=== PATIENT | female | born 1965 | race Caucasian/White ===

== ENCOUNTER 2020-08-29 02:22 | Emergency (ER) | payer OTHER, SELFPAY ==
[2020-08-29 02:31] VITALS: BP 140/85; PULSE 92; RESP 18; O2SAT 100; BMI 25.2
[2020-08-29 04:00] VITALS: BP 140/85; PULSE 92; RESP 18; TEMP 36.9; O2SAT 100
--- NOTE | 2020-08-29 04:21 | ECG_ITS ---
Test Reason : HEADACHE Blood Pressure : / mmHG Vent. Rate : 066 BPM Atrial Rate : 066 BPM P-R Int : 134 ms QRS Dur : 086 ms QT Int : 420 ms P-R-T Axes : 038 055 057 degrees QTc Int : 440 ms Normal sinus rhythm Normal ECG No previous ECGs available Referred By: Kayleen Nielsen Electronically Signed By:Lane Lopez
--- NOTE | 2020-08-29 04:24 | ED.HA ---
HPI - Headache General Chief Complaint: Headache Stated Complaint: migraine Time Seen by Provider: 08/29/20 02:51 Source: patient Mode of arrival: ambulatory History of Present Illness HPI Narrative: 55F p/w migraine since Wednesday that has been normal onset and character for her (nausea, photosensitivity, auditory sensitivity) without additional symptoms until Wednesday when her headache worsened. None of this has been associated with fevers, chills, SOB, palpitations and the nausea is a side effect of her migraine. She denies any urinary symptoms but endorses COVID vaccine #1 approximately 1 week ago. Otherwise, patient denies speech/or functional deficits. She took her prescribed rizatriptan x2 on Wednesday and then took Zomig in the evening. She stopped drinking her Diet Coke on Wednesday. Wednesday she still had her migraine so she took another Zomig and then began experiencing worsening headache so she took sumatriptan x2 and states that her head hurts so bad and she doesn't know what to do . Related Data Home Medications Medication Instructions Recorded Confirmed estradiol 0.0375 mg/24 hr 1 patch TOPICAL 2XW 07/11/20 07/11/20 semiweekly transdermal patch Previous Rx's Medication Instructions Recorded simvastatin 20 mg tablet 20 mg PO DAILY #90 tab 06/06/20 bupropion HCl 150 mg 24 hr tablet, 300 mg PO QAM #180 tab 07/03/20 extended release rizatriptan 10 mg tablet 10 mg PO .COMPLEX 30 Days #12 tab 07/11/20 cefixime 400 mg PO DAILY 7 Days #7 cap 08/29/20 Allergies Allergy/AdvReac Type Severity Reaction Status Date / Time levofloxacin AdvReac Unknown serious Verified 07/11/20 17:45 abdominal upset Review of Systems Review of Systems: Pertinent positives and negatives as stated in HPI and 10 point review of systems is otherwise negative. [facility] Past Medical History Source: nursing notes reviewed Medical History Depression Family history of early CAD Hx of migraine headaches Hx of renal tubular acidosis Hyperlipidemia Insomnia Kidney stones Vitamin D deficiency Surgical History H/O colonoscopy History of section Hx of prior ablation treatment S/P hysterectomy Family History Family History Father CVD (cardiovascular disease) Mother No problems noted. Brother No problems noted. Daughter No problems noted. Daughter No problems noted. Social History Social History Patient Tobacco Use Status: Never used Tobacco Use of substances other than those prescribed or required for medical reasons: No Advance Directives: No Patient : No Physical Exam Vital Signs: Vital Signs: Last Vital Signs Temp 98.4 F 08/29/20 04:00 Pulse 68 08/29/20 06:00 Resp 18 08/29/20 06:00 BP 147/85 H 08/29/20 06:00 Pulse Ox 100 08/29/20 04:00 Body Mass Index 25.2 VITAL SIGNS: Reviewed. GENERAL: Well developed, well nourished, mild distress. HEAD: Normocephalic/atraumatic EYES: PERRLA, EOMIy NOSE: Nares patent bilateral OROPHARYNX: no oral lesions noted, posterior pharynx clear NECK: Supple, no adenopathy LUNGS: Normal breath sounds. No adventitious sounds or accessory muscle use. SpO2<100> CARDIOVASCULAR: Regular rate and rhythm without noted murmurs ABDOMEN: Soft, non-tender, non-distended with bowel sounds. SKIN: Inspection of the skin reveals no rashes NEUROLOGIC: Alert and oriented x 4. Strength and sensation to light touch were grossly intact x 4. Course Course Course Narrative: 55-year-old female with history and clinical presentation consistent with likely combination of migraine and caffeine withdrawal, but concerns regarding the use of 3 different triptans for migraine control. Suspect patient may now have a medication overuse headache. Will attempt to control the migraine with a combination of medications an IV fluids, check labs/urinalysis/EKG. Review of all investigations significant for evidence pyelonephritis which was treated with initial antibiotics here in the emergency room and then patient provided a prescription for remainder treatment. On re-evaluation, patient has had excellent improvement of her symptoms and she was strongly encouraged to follow-up with her neurologist. MDM - Headache Lab Data Result diagrams: 08/29/20 04:47 08/29/20 04:47 Labs: Lab Results 08/29/20 08/29/20 Range/Units 04:47 04:47 WBC 7.0 (4.8-10.8) X10*3/uL RBC 4.98 (4.20-5.50) X10*6/uL Hgb 15.5 (12.0-16.0) g/dl Hct 45.8 (37-47) % MCV 92.0 (80-98) fL MCH 31.1 (27.0-33.0) pg MCHC 33.8 (31.0-35.0) g/dl RDW 12.3 (11.0-16.0) % Plt Count 219 (160-400) X10*3/uL MPV 8.8 L (9.4-12.3) fL Immature Gran % (Auto) 0.3 (0.0-0.4) % Neut % (Auto) 74.0 H (45-73) % Lymph % (Auto) 17.6 L (20-40) % [place]cdowell % (Auto) 6.6 (2-11) % Eos % (Auto) 1.1 (0-4) % Baso % (Auto) 0.4 (0-2) % Lymph # (Auto) 1.2 (1.2-4.9) X10*3/uL [place] # (Auto) 0.5 (0.1-1.2) X10*3/uL Eos # (Auto) 0.1 (0.0-0.4) X10*3/uL Baso # (Auto) 0.0 (0.0-0.2) X10*3/uL Abs Immat Gran (auto) 0.02 (0.00-0.03) X10*3/uL Absolute Neuts (auto) 5.2 (2.0-8.3) X10*3/uL Absolute Nucleated RBC 0.000 (0.0-0.012) X10*3/uL Nucleated RBC % (auto) 0.0 (0.0-0.2) /100WBC Urine Color YELLOW Urine Appearance HAZY Urine pH 7.0 (5.0-8.0) Ur Specific [place] 1.010 (1.005-1.025) Urine Protein NEG (NEG-TRACE) MG/DL Urine Glucose (UA) NEG (NEG) MG/DL Urine Ketones NEG (NEG) MG/DL Urine Blood 2+ H (NEG) Urine Nitrite POS H (NEG) Ur Leukocyte Esterase 3+ H (NEG) Urine RBC 5-9 H (0) /HPF Urine WBC 30-49 H (0-4) /HPF Ur Squamous Epith Cells 1+ /LPF Urine Bacteria 4+ /LPF ECG Data Attestation: I personally reviewed and interpreted this ECG as follows: Prior ECG tracings: not available for review Interpretation: Normal sinus rhythm, HR-66, no evidence of acute ischemia, MS/QRS/QTC are within normal limits. Discharge Plan Discharge Clinical Impression: Migraines, Pyelonephritis Patient Disposition: Home, Self-Care Instructions: Migraine Headache (ED), Kidney Infection (ED) Additional Instructions: Resume your home medications as prescribed. Please call the office of your neurologist this morning and try to move up your appointment to an earlier date and time. Return the ER for any acute worsening of your symptoms. Prescriptions: New cefixime 400 mg capsule 400 mg PO DAILY 7 Days Qty: 7 RF: 0 No Action simvastatin 20 mg tablet 20 mg PO DAILY Qty: 90 RF: 1 bupropion HCl 150 mg tablet extended release 24 hr 300 mg PO QAM Qty: 180 RF: 0 estradiol 0.0375 mg/24 hr patch semiweekly 1 patch topical 2XW RF: 0 rizatriptan 10 mg tablet 10 mg PO .COMPLEX 30 Days Qty: 12 RF: 1 Referrals: Tk Murillo, [employer] [Primary Care Provider] - 2 days Interventions: ED Discharge Assessment Last Done: 08/29/20 06:39
[2020-08-29 04:53] LABS: Basophils Percent Auto 0.4 % (0-2); Eosinophils Absolute Auto 0.1 X10*3/uL (0.0-0.4); Eosinophils Percent Auto 1.1 % (0-4); Glucose Urine UA NEG (NEG); Hematocrit 45.8 % (37-47); Hemoglobin 15.5 g/dl (12.0-16.0); Imm Gran Abs Auto 0.02 X10*3/uL (0.00-0.03); Imm Gran Pct Auto 0.3 % (0.0-0.4); Leukocyte Esterase Urine 3+ (NEG); Lymphocytes Absolute Auto 1.2 X10*3/uL (1.2-4.9); Lymphocytes Percent Auto 17.6 % (20-40); MANUAL DIFF FLAG NO; Mean Corpuscular HGB Conc 33.8 g/dl (31.0-35.0); Mean Corpuscular Hemoglobin 31.1 pg (27.0-33.0); Mean Platelet Volume 8.8 fL (9.4-12.3); Monocytes Absolute Auto 0.5 X10*3/uL (0.1-1.2); Monocytes Percent Auto 6.6 % (2-11); Neutrophils Absolute Auto 5.2 X10*3/uL (2.0-8.3); Nitrite Urine POS (NEG); Platelet Count 219 X10*3/uL (160-400); Red Blood Count 4.98 X10*6/uL (4.20-5.50); Red Cell Distribution Width 12.3 % (11.0-16.0); UACC Culture Trigger YES; Urine Blood 2+ (NEG); Urine Ketones NEG (NEG); Urine Protein NEG (NEG-TRACE)
[2020-08-29 04:54] LABS: Appearance Urine HAZY; Color Urine YELLOW
[2020-08-29 04:59] LABS: Bacteria Urine 4+ /LPF; Squamous Epithelial Cell Urine 1+ /LPF; WBC Urine 30-49 /HPF (0-4)
[2020-08-29] MEDS: diphenhydrAMINE HCL 50 MG/ML VIAL 25 MG IVPUSH (05:05)
[2020-08-29] MEDS: Metoclopramide HCl 10 MG/2 ML VIAL IVPUSH (05:05)
[2020-08-29] MEDS: Acetaminophen 325 MG TABLET 975 MG PO (05:06)
[2020-08-29] MEDS: 0.9 % Sodium Chloride 1,000 ML 999 ML IV (05:06)
[2020-08-29] MEDS: Ketorolac Tromethamine 15 MG/ML VIAL IVPUSH (05:06)
[2020-08-29] MEDS: cefTRIAXone sodium 1 GM in 0.9 % Sodium Chloride 50 ML IV (05:58)
[2020-08-29 06:00] VITALS: BP 147/85; PULSE 68; RESP 18
== END 2020-08-29 06:55 | disposition home or self-care (01) ==
PROVIDERS: Emergency Provider Student in an Organized Health Care Education/Training Program; PCP Nurse Practitioner Family
DX: G43.909 Migraine, unspecified, not intractable, without status migrainosus (principal); N11.1 Chronic obstructive pyelonephritis; Z79.899 Other long term (current) drug therapy
CPT/HCPCS: 36415; 80053; 81001; 81003; 83735; 85025; 87086; 87088; 87186; 93005; 96361; 96365; 96375; 99285; J0696; J1200; J1885; J2765

== ENCOUNTER 2020-09-10 13:21 | Outpatient (REF) | payer OTHER, SELFPAY ==
[2020-09-10 16:50] LABS: Glucose Urine UA NEG (NEG); Leukocyte Esterase Urine 3+ (NEG); Nitrite Urine NEG (NEG); Specific Gravity - Urine <= 1.005 (1.005-1.025); UACC Culture Trigger YES; Urine Blood 1+ (NEG); Urine Ketones NEG (NEG); Urine Protein NEG (NEG-TRACE)
[2020-09-10 16:52] LABS: Appearance Urine HAZY; Color Urine STRAW
[2020-09-10 18:21] LABS: Bacteria Urine TRACE /LPF; RBC Urine 0-2 /HPF (0); Squamous Epithelial Cell Urine TRACE /LPF
== END 2020-09-10 13:22 | disposition home or self-care (01) ==
LOC: HO.HMGCLDS 13:21
PROVIDERS: PCP Nurse Practitioner Family; Visit Provider Nurse Practitioner Family
DX: N39.0 Urinary tract infection, site not specified (principal)
CPT/HCPCS: 81001; 81003; 87086

== ENCOUNTER 2020-09-18 11:49 | Outpatient (REF) | payer OTHER, SELFPAY ==
[2020-09-18 13:53] LABS: Glucose Urine UA NEG (NEG); Leukocyte Esterase Urine 3+ (NEG); Nitrite Urine NEG (NEG); PH 7.5 (5.0-8.0); Urine Blood TRACE (NEG); Urine Ketones NEG (NEG); Urine Protein NEG (NEG-TRACE)
[2020-09-18 13:54] LABS: Appearance Urine CLEAR; Color Urine YELLOW
[2020-09-18 14:04] LABS: Amorphous Sediment Urine 2+ /LPF; Bacteria Urine TRACE /LPF; Granular Casts Urine 0-2 /LPF; RBC Urine 0 /HPF (0); Squamous Epithelial Cell Urine 1+ /LPF
== END 2020-09-18 11:50 | disposition home or self-care (01) ==
LOC: HO.HMGCLDS 11:49
PROVIDERS: PCP Nurse Practitioner Family; Visit Provider Nurse Practitioner Family
DX: R30.0 Dysuria (principal)
CPT/HCPCS: 81001; 87086

== ENCOUNTER 2021-03-26 07:45 | Outpatient (REF) | payer OTHER, SELFPAY ==
[2021-03-26 11:22] LABS: Appearance Urine HAZY; Color Urine YELLOW; Glucose Urine UA NEG (NEG); Leukocyte Esterase Urine 3+ (NEG); Nitrite Urine NEG (NEG); Specific Gravity - Urine 1.015 (1.005-1.025); Urine Blood TRACE (NEG); Urine Ketones NEG (NEG); Urine Protein NEG (NEG-TRACE)
[2021-03-26 11:53] LABS: Amorphous Sediment Urine 2+ /LPF; Bacteria Urine 2+ /LPF; Squamous Epithelial Cell Urine 3+ /LPF
[2021-03-26 11:54] LABS: RBC Urine 0-2 /HPF (0)
[2021-03-26 12:02] LABS: Alanine Aminotransferase 32 U/L (0-31); Albumin Level 4.3 g/dL (3.5-5.0); Alkaline Phosphatase 86 U/L (39-117); Anion Gap 14 (12-20); Aspartate Amino Transferase 32 U/L (5-31); Bilirubin Total 0.6 mg/dL (0.0-1.0); Blood Urea Nitrogen 9 mg/dL (9-16); Calcium 9.2 mg/dL (8.4-10.2); Carbon Dioxide 25 mmol/L (22-29); Chloride 108 mmol/L (96-108); Cholesterol 180 mg/dL; Estimated Glomerular Filt Rate > 60; Glucose Fasting 80 mg/dL (60-99); HDL Cholesterol 67 mg/dL; LDL Cholesterol Calculated 99 mg/dl; Potassium 4.3 mmol/L (3.3-5.1); Sodium 143 mmol/L (135-145); Total Protein 6.6 g/dL (6.5-8.0); Triglycerides 73 mg/dL
== END 2021-03-26 07:46 | disposition home or self-care (01) ==
LOC: HO.HMGCLDS 07:45
PROVIDERS: PCP Nurse Practitioner Family; Visit Provider Nurse Practitioner Family
DX: E78.5 Hyperlipidemia, unspecified (principal); R74.8 Abnormal levels of other serum enzymes; R30.0 Dysuria
CPT/HCPCS: 36415; 80053; 80061; 81001; 84443

== ENCOUNTER 2021-08-07 14:44 | Outpatient (REF) | payer OTHER, SELFPAY ==
[2021-08-07 16:32] LABS: MANUAL DIFF FLAG NO
[2021-08-07 16:34] LABS: Basophils Absolute Auto 0.1 X10*3/uL (0.0-0.2); Basophils Percent Auto 0.8 % (0-2); Eosinophils Absolute Auto 0.1 X10*3/uL (0.0-0.4); Eosinophils Percent Auto 0.9 % (0-4); Hemoglobin 13.6 g/dl (12.0-16.0); Imm Gran Abs Auto 0.02 X10*3/uL (0.00-0.03); Imm Gran Pct Auto 0.3 % (0.0-0.4); Lymphocytes Absolute Auto 1.2 X10*3/uL (1.2-4.9); Lymphocytes Percent Auto 18.2 % (20-40); Mean Corpuscular HGB Conc 33.2 g/dl (31.0-35.0); Mean Corpuscular Volume 90.5 fL (80.0-98.0); Mean Platelet Volume 9.9 fL (9.4-12.3); Monocytes Absolute Auto 0.5 X10*3/uL (0.1-1.2); Monocytes Percent Auto 8.1 % (2-11); Neutrophils Absolute Auto 4.7 x10*3/uL (2.0-8.3); Neutrophils Percent Auto 71.7 % (45-73); Platelet Count 287 X10*3/uL (160-400); Red Blood Count 4.53 X10*6/uL (4.20-5.50); White Blood Count 6.6 X10*3/uL (4.8-10.8)
[2021-08-07 16:45] LABS: Anion Gap 13 (12-20); Blood Urea Nitrogen 11 mg/dL (9-16); Calcium 9.5 mg/dL (8.4-10.2); Carbon Dioxide 26 mmol/L (22-29); Chloride 106 mmol/L (96-108); Estimated Glomerular Filt Rate 52; Glucose Random 80 mg/dL (60-115); Potassium 4.6 mmol/L (3.3-5.1); Sodium 140 mmol/L (135-145)
[2021-08-07 16:46] LABS: Alanine Aminotransferase 30 U/L (0-31); Albumin Level 4.1 g/dL (3.5-5.0); Alkaline Phosphatase 90 U/L (39-117); Aspartate Amino Transferase 28 U/L (5-31); Bilirubin Direct 0.2 mg/dL (0.0-0.5); Bilirubin Total 0.4 mg/dL (0.0-1.0); Total Protein 6.5 g/dL (6.5-8.0)
[2021-08-07 17:07] LABS: Appearance Urine HAZY; Color Urine STRAW; Glucose Urine UA NEG (NEG); Leukocyte Esterase Urine 3+ (NEG); Nitrite Urine NEG (NEG); PH 6.5 (5.0-8.0); Specific Gravity - Urine <= 1.005 (1.005-1.025); Urine Blood 1+ (NEG); Urine Ketones NEG (NEG); Urine Protein NEG (NEG-TRACE)
[2021-08-07 17:13] LABS: Bacteria Urine 4+ /LPF; Mucus Urine 4+ /LPF; Squamous Epithelial Cell Urine 4+ /LPF; WBC Urine 50-75 /HPF (0-4)
== END 2021-08-07 14:45 | disposition home or self-care (01) ==
LOC: HO.HMGCLDS 14:44
PROVIDERS: PCP Nurse Practitioner Family; Visit Provider Podiatrist
DX: R74.8 Abnormal levels of other serum enzymes (principal); R30.0 Dysuria
CPT/HCPCS: 36415; 80048; 80076; 81001; 85025

== ENCOUNTER 2021-08-08 15:07 | Outpatient (REF) | payer OTHER, SELFPAY ==
[2021-08-08 16:44] LABS: Appearance Urine CLEAR; Color Urine STRAW; Glucose Urine UA NEG (NEG); Leukocyte Esterase Urine 3+ (NEG); Nitrite Urine NEG (NEG); PH 6.5 (5.0-8.0); Specific Gravity - Urine <= 1.005 (1.005-1.025); UACC Culture Trigger YES; Urine Blood 1+ (NEG); Urine Ketones NEG (NEG); Urine Protein NEG (NEG-TRACE)
[2021-08-08 17:06] LABS: Bacteria Urine 2+ /LPF; RBC Urine 0-2 /HPF (0); Squamous Epithelial Cell Urine 2+ /LPF
== END 2021-08-08 15:08 | disposition home or self-care (01) ==
LOC: HO.HMGCLDS 15:07
PROVIDERS: PCP Nurse Practitioner Family; Visit Provider Nurse Practitioner Family
DX: N39.0 Urinary tract infection, site not specified (principal)
CPT/HCPCS: 81001; 87086

== ENCOUNTER 2021-08-26 15:07 | Outpatient (REF) | payer OTHER, SELFPAY ==
[2021-08-26 16:43] LABS: Appearance Urine CLEAR; Color Urine STRAW; Glucose Urine UA NEG (NEG); Leukocyte Esterase Urine 3+ (NEG); Nitrite Urine NEG (NEG); PH 6.5 (5.0-8.0); Specific Gravity - Urine <= 1.005 (1.005-1.025); UACC Culture Trigger YES; Urine Blood TRACE (NEG); Urine Ketones NEG (NEG); Urine Protein NEG (NEG-TRACE)
[2021-08-26 16:51] LABS: Bacteria Urine 1+ /LPF; Squamous Epithelial Cell Urine 3+ /LPF; WBC Urine 50-75 /HPF (0-4)
== END 2021-08-26 15:08 | disposition home or self-care (01) ==
LOC: HO.HMGCLDS 15:07
PROVIDERS: PCP Nurse Practitioner Family; Visit Provider Nurse Practitioner Family
DX: N39.0 Urinary tract infection, site not specified (principal)
CPT/HCPCS: 81001; 87086

== ENCOUNTER 2021-10-14 08:02 | Outpatient (REF) | payer OTHER, SELFPAY ==
[2021-10-14 11:20] LABS: MANUAL DIFF FLAG NO
[2021-10-14 11:32] LABS: Appearance Urine HAZY; Basophils Absolute Auto 0.1 X10*3/uL (0.0-0.2); Color Urine YELLOW; Eosinophils Absolute Auto 0.1 X10*3/uL (0.0-0.4); Eosinophils Percent Auto 2.9 % (0-4); Glucose Urine UA NEG (NEG); Hematocrit 40.3 % (37.0-47.0); Hemoglobin 13.4 g/dl (12.0-16.0); Imm Gran Abs Auto 0.01 X10*3/uL (0.00-0.03); Imm Gran Pct Auto 0.2 % (0.0-0.4); Leukocyte Esterase Urine 3+ (NEG); Lymphocytes Absolute Auto 1.1 X10*3/uL (1.2-4.9); Lymphocytes Percent Auto 22.9 % (20-40); Mean Corpuscular HGB Conc 33.3 g/dl (31.0-35.0); Mean Corpuscular Hemoglobin 30.2 pg (27.0-33.0); Mean Platelet Volume 9.9 fL (9.4-12.3); Monocytes Absolute Auto 0.4 X10*3/uL (0.1-1.2); Neutrophils Absolute Auto 3.1 x10*3/uL (2.0-8.3); Nitrite Urine NEG (NEG); Platelet Count 222 X10*3/uL (160-400); Red Blood Count 4.43 X10*6/uL (4.20-5.50); Red Cell Distribution Width 12.1 % (11.0-16.0); UACC Culture Trigger YES; Urine Blood 3+ (NEG); Urine Ketones NEG (NEG); Urine Protein NEG (NEG-TRACE); White Blood Count 4.8 X10*3/uL (4.8-10.8)
[2021-10-14 11:48] LABS: Alanine Aminotransferase 18 U/L (0-31); Albumin Level 4.3 g/dL (3.5-5.0); Alkaline Phosphatase 86 U/L (39-117); Anion Gap 10 (12-20); Aspartate Amino Transferase 20 U/L (5-31); Bilirubin Total 0.5 mg/dL (0.0-1.0); Blood Urea Nitrogen 12 mg/dL (9-16); Calcium 9.1 mg/dL (8.4-10.2); Carbon Dioxide 27 mmol/L (22-29); Chloride 106 mmol/L (96-108); Cholesterol 187 mg/dL; Estimated Glomerular Filt Rate 52; Glucose Fasting 84 mg/dL (60-99); HDL Cholesterol 76 mg/dL; LDL Cholesterol Calculated 100 mg/dl; Potassium 4.3 mmol/L (3.3-5.1); Sodium 139 mmol/L (135-145); Total Protein 6.4 g/dL (6.5-8.0); Triglycerides 55 mg/dL
[2021-10-14 11:50] LABS: Amorphous Sediment Urine 2+ /LPF; Bacteria Urine 1+ /LPF; Squamous Epithelial Cell Urine 2+ /LPF
[2021-10-14 11:59] LABS: TSH reflex Free T4 1.39 uIU/mL (0.32-4.0); Vitamin D 25-OH Total 20.3 ng/mL (>30)
== END 2021-10-14 08:03 | disposition home or self-care (01) ==
LOC: HO.HMGCLDS 08:02
PROVIDERS: PCP Nurse Practitioner Family; Visit Provider Nurse Practitioner Family
DX: Z00.00 Encounter for general adult medical examination without abnormal findings (principal); Z78.0 Asymptomatic menopausal state
CPT/HCPCS: 36415; 80053; 80061; 81001; 82306; 84443; 85025; 87086

== ENCOUNTER 2022-02-05 06:09 | Outpatient (REF) | payer OTHER, SELFPAY ==
[2022-02-05 07:43] LABS: MANUAL DIFF FLAG NO
[2022-02-05 07:48] LABS: Basophils Absolute Auto 0.1 X10*3/uL (0.0-0.2); Basophils Percent Auto 1.6 % (0-2); Eosinophils Absolute Auto 0.2 X10*3/uL (0.0-0.4); Eosinophils Percent Auto 3.4 % (0-4); Hematocrit 40.6 % (37.0-47.0); Hemoglobin 13.6 g/dl (12.0-16.0); Imm Gran Abs Auto 0.02 X10*3/uL (0.00-0.03); Imm Gran Pct Auto 0.4 % (0.0-0.4); Lymphocytes Absolute Auto 1.1 X10*3/uL (1.2-4.9); Lymphocytes Percent Auto 24.9 % (20-40); Mean Corpuscular HGB Conc 33.5 g/dl (31.0-35.0); Mean Corpuscular Hemoglobin 30.4 pg (27.0-33.0); Mean Corpuscular Volume 90.8 fL (80.0-98.0); Mean Platelet Volume 9.7 fL (9.4-12.3); Monocytes Absolute Auto 0.5 X10*3/uL (0.1-1.2); Monocytes Percent Auto 10.5 % (2-11); Neutrophils Absolute Auto 2.6 x10*3/uL (2.0-8.3); Neutrophils Percent Auto 59.2 % (45-73); Platelet Count 249 X10*3/uL (160-400); Red Blood Count 4.47 X10*6/uL (4.20-5.50); Red Cell Distribution Width 11.9 % (11.0-16.0); White Blood Count 4.5 X10*3/uL (4.8-10.8)
[2022-02-05 08:04] LABS: Alanine Aminotransferase 20 U/L (0-31); Albumin Level 4.2 g/dL (3.5-5.0); Alkaline Phosphatase 98 U/L (39-117); Anion Gap 14 (12-20); Aspartate Amino Transferase 20 U/L (5-31); Bilirubin Total 0.5 mg/dL (0.0-1.0); Blood Urea Nitrogen 12 mg/dL (9-16); Calcium 9.2 mg/dL (8.4-10.2); Carbon Dioxide 26 mmol/L (22-29); Chloride 106 mmol/L (96-108); Estimated Glomerular Filt Rate 53; Glucose Random 85 mg/dL (60-115); Potassium 4.2 mmol/L (3.3-5.1); Sodium 142 mmol/L (135-145); Total Protein 6.5 g/dL (6.5-8.0)
[2022-02-05 08:23] LABS: TSH reflex Free T4 2.29 uIU/mL (0.32-4.0)
[2022-02-05 08:38] LABS: INTERNATIONAL NORM RATIO 0.9 (0.9-1.1)
[2022-02-05 08:41] LABS: Partial Thromboplastin Time 34.2 SEC (26.0-36.4)
[2022-02-05 11:17] LABS: Appearance Urine Cloudy; Color Urine Yellow; Glucose Urine UA Negative (Negative); Leukocyte Esterase Urine Large (3+) (Negative); Nitrite Urine Negative (Negative); PH 7.5 (5.0-9.0); UMIC TRIGGER UACC YES; Urine Blood Trace (Negative); Urine Ketones Negative (Negative); Urine Protein Negative (Neg-Trace)
[2022-02-05 12:04] LABS: Bacteria Urine 1+ (None Seen); Hyaline Casts Urine 0-2 /LPF (0-2); RBC Urine 0-2 /HPF (0-2); UACC Culture Trigger YES; WBC Urine 21-50 /HPF (0-5)
== END 2022-02-05 06:10 | disposition home or self-care (01) ==
LOC: HO.HMGCLDS 06:09
PROVIDERS: PCP Nurse Practitioner Family; Visit Provider Nurse Practitioner Family
DX: Z01.818 Encounter for other preprocedural examination (principal)
CPT/HCPCS: 36415; 80053; 81001; 81003; 84443; 85025; 85610; 85730; 87086; 87088; 87186

== ENCOUNTER 2022-02-17 06:47 | Outpatient (REF) | payer OTHER, SELFPAY ==
[2022-02-17 11:31] LABS: Appearance Urine Cloudy; Color Urine Yellow; Glucose Urine UA Negative (Negative); Leukocyte Esterase Urine Large (3+) (Negative); Nitrite Urine Negative (Negative); PH 6.5 (5.0-9.0); Specific Gravity - Urine 1.015 (1.005-1.025); UMIC TRIGGER UACC YES; Urine Blood Trace (Negative); Urine Ketones Negative (Negative); Urine Protein Negative (Neg-Trace)
[2022-02-17 11:39] LABS: Bacteria Urine 1+ (None Seen); Hyaline Casts Urine 0-2 /LPF (0-2); RBC Urine 0-2 /HPF (0-2); UACC Culture Trigger YES; WBC Urine >50 /HPF (0-5)
== END 2022-02-17 06:48 | disposition home or self-care (01) ==
LOC: HO.HMGCLDS 06:47
PROVIDERS: PCP Nurse Practitioner Family; Visit Provider Nurse Practitioner Family
DX: N39.0 Urinary tract infection, site not specified (principal)
CPT/HCPCS: 81001; 87086

== ENCOUNTER 2022-03-16 09:56 | Outpatient (REF) | payer OTHER, SELFPAY ==
[2022-03-16 11:30] LABS: MANUAL DIFF FLAG NO
[2022-03-16 11:35] LABS: Basophils Absolute Auto 0.1 X10*3/uL (0.0-0.2); Basophils Percent Auto 1.1 % (0-2); Eosinophils Absolute Auto 0.1 X10*3/uL (0.0-0.4); Eosinophils Percent Auto 2.6 % (0-4); Hemoglobin 14.2 g/dl (12.0-16.0); Imm Gran Abs Auto 0.01 X10*3/uL (0.00-0.03); Imm Gran Pct Auto 0.2 % (0.0-0.4); Lymphocytes Absolute Auto 1.1 X10*3/uL (1.2-4.9); Lymphocytes Percent Auto 20.2 % (20-40); Mean Corpuscular Hemoglobin 30.6 pg (27.0-33.0); Mean Corpuscular Volume 92.7 fL (80.0-98.0); Mean Platelet Volume 9.6 fL (9.4-12.3); Monocytes Absolute Auto 0.5 X10*3/uL (0.1-1.2); Monocytes Percent Auto 8.5 % (2-11); Neutrophils Absolute Auto 3.6 x10*3/uL (2.0-8.3); Neutrophils Percent Auto 67.4 % (45-73); Platelet Count 278 X10*3/uL (160-400); Red Blood Count 4.64 X10*6/uL (4.20-5.50); White Blood Count 5.4 X10*3/uL (4.8-10.8)
[2022-03-16 11:54] LABS: Appearance Urine Clear; Color Urine Yellow; Glucose Urine UA Negative (Negative); Leukocyte Esterase Urine Large (3+) (Negative); Nitrite Urine Negative (Negative); PH 6.5 (5.0-9.0); UMIC TRIGGER UACC YES; Urine Blood Negative (Negative); Urine Ketones Negative (Negative); Urine Protein Negative (Neg-Trace)
[2022-03-16 11:56] LABS: Bacteria Urine None Seen (None Seen); Hyaline Casts Urine 0-2 /LPF (0-2); RBC Urine 0-2 /HPF (0-2); UACC Culture Trigger YES; WBC Urine 21-50 /HPF (0-5)
[2022-03-16 12:12] LABS: Alanine Aminotransferase 24 U/L (0-31); Albumin Level 4.3 g/dL (3.5-5.0); Alkaline Phosphatase 102 U/L (39-117); Anion Gap 12 (12-20); Aspartate Amino Transferase 24 U/L (5-31); Bilirubin Total 0.5 mg/dL (0.0-1.0); Blood Urea Nitrogen 12 mg/dL (9-16); Calcium 9.6 mg/dL (8.4-10.2); Carbon Dioxide 27 mmol/L (22-29); Chloride 106 mmol/L (96-108); Estimated Glomerular Filt Rate 55; Glucose Random 61 mg/dL (60-115); Potassium 4.3 mmol/L (3.3-5.1); Sodium 141 mmol/L (135-145); Total Protein 6.5 g/dL (6.5-8.0)
== END 2022-03-16 09:57 | disposition home or self-care (01) ==
LOC: HO.HMGCLDS 09:56
PROVIDERS: PCP Nurse Practitioner Family; Visit Provider Nurse Practitioner Family
DX: N39.0 Urinary tract infection, site not specified (principal)
CPT/HCPCS: 36415; 80053; 81001; 85025; 87086

== ENCOUNTER 2022-10-01 13:32 | Outpatient (REF) | payer OTHER, SELFPAY | END 2022-10-01 13:33 | disposition home or self-care (01) | LOC: HO.HMGCLDS 13:32 | PROVIDERS: PCP Nurse Practitioner Family; Visit Provider Nurse Practitioner Family | DX: R82.90 Unspecified abnormal findings in urine (principal) | CPT/HCPCS: 81001; 87086 ==

== ENCOUNTER 2022-10-05 08:38 | Outpatient (REF) | payer OTHER, SELFPAY ==
[2022-10-05 11:38] LABS: MANUAL DIFF FLAG NO
[2022-10-05 11:49] LABS: Basophils Percent Auto 0.7 % (0-2); Eosinophils Absolute Auto 0.1 X10*3/uL (0.0-0.4); Eosinophils Percent Auto 1.7 % (0-4); Hematocrit 43.2 % (37.0-47.0); Hemoglobin 14.4 g/dl (12.0-16.0); Imm Gran Abs Auto 0.01 X10*3/uL (0.00-0.03); Imm Gran Pct Auto 0.2 % (0.0-0.4); Lymphocytes Absolute Auto 1.3 X10*3/uL (1.2-4.9); Lymphocytes Percent Auto 24.7 % (20-40); Mean Corpuscular HGB Conc 33.3 g/dl (31.0-35.0); Mean Corpuscular Hemoglobin 30.1 pg (27.0-33.0); Mean Corpuscular Volume 90.2 fL (80.0-98.0); Mean Platelet Volume 9.8 fL (9.4-12.3); Monocytes Absolute Auto 0.5 X10*3/uL (0.1-1.2); Monocytes Percent Auto 9.9 % (2-11); Neutrophils Absolute Auto 3.4 x10*3/uL (2.0-8.3); Neutrophils Percent Auto 62.8 % (45-73); Platelet Count 302 X10*3/uL (160-400); Red Blood Count 4.79 X10*6/uL (4.20-5.50); Red Cell Distribution Width 11.9 % (11.0-16.0); White Blood Count 5.3 X10*3/uL (4.8-10.8)
[2022-10-05 13:13] LABS: Alanine Aminotransferase 19 U/L (0-31); Albumin Level 4.6 g/dL (3.5-5.0); Alkaline Phosphatase 100 U/L (39-117); Anion Gap 16 (12-20); Aspartate Amino Transferase 22 U/L (5-31); Bilirubin Total 0.7 mg/dL (0.0-1.0); Blood Urea Nitrogen 9 mg/dL (9-16); Calcium 10.3 mg/dL (8.4-10.2); Carbon Dioxide 24 mmol/L (22-29); Chloride 103 mmol/L (96-108); Cholesterol 190 mg/dL; Estimated Glomerular Filt Rate 37; Glucose Fasting 86 mg/dL (60-99); HDL Cholesterol 75 mg/dL; LDL Cholesterol Calculated 101 mg/dl; Sodium 139 mmol/L (135-145); Total Protein 7.2 g/dL (6.5-8.0); Triglycerides 70 mg/dL
[2022-10-05 13:21] LABS: TSH reflex Free T4 1.42 uIU/mL (0.32-4.0)
== END 2022-10-05 08:39 | disposition home or self-care (01) ==
LOC: HO.HMGCLDS 08:38
PROVIDERS: PCP Nurse Practitioner Family; Visit Provider Nurse Practitioner Family
DX: E78.5 Hyperlipidemia, unspecified (principal); N39.0 Urinary tract infection, site not specified
CPT/HCPCS: 36415; 80053; 80061; 81001; 84443; 85025; 87086

== ENCOUNTER 2022-10-07 06:18 | Outpatient (REF) | payer OTHER, SELFPAY ==
[2022-10-07 11:18] LABS: Appearance Urine Clear; Color Urine Yellow; Glucose Urine UA Negative (Negative); Leukocyte Esterase Urine Moderate (2+) (Negative); Nitrite Urine Negative (Negative); Specific Gravity - Urine <= 1.005 (1.005-1.025); UMIC TRIGGER UA YES; Urine Blood Negative (Negative); Urine Ketones Negative (Negative); Urine Protein Negative (Neg-Trace)
[2022-10-07 11:35] LABS: Bacteria Urine None Seen (None Seen); Hyaline Casts Urine 0-2 /LPF (0-2); RBC Urine 0-2 /HPF (0-2); Squamous Epithelial Cell Urine 0-2 /HPF (0-2); WBC Urine 0-5 /HPF (0-5)
[2022-10-07 12:38] LABS: Estimated Glomerular Filt Rate 51
== END 2022-10-07 06:19 | disposition home or self-care (01) ==
LOC: HO.HMGCLDS 06:18
PROVIDERS: PCP Nurse Practitioner Family; Visit Provider Nurse Practitioner Family
DX: R79.89 Other specified abnormal findings of blood chemistry (principal)
CPT/HCPCS: 36415; 81001; 82565

== ENCOUNTER 2022-10-12 09:51 | Outpatient (REF) | payer OTHER, SELFPAY ==
[2022-10-12 13:39] LABS: Appearance Urine Cloudy; Color Urine Yellow; Glucose Urine UA Negative (Negative); Leukocyte Esterase Urine Large (3+) (Negative); Nitrite Urine Negative (Negative); Specific Gravity - Urine <= 1.005 (1.005-1.025); UMIC TRIGGER UACC YES; Urine Blood Negative (Negative); Urine Ketones Negative (Negative); Urine Protein Negative (Neg-Trace)
[2022-10-12 13:45] LABS: Bacteria Urine None Seen (None Seen); RBC Urine 0-2 /HPF (0-2); Squamous Epithelial Cell Urine 0-2 /HPF (0-2); UACC Culture Trigger YES; WBC Urine >50 /HPF (0-5)
== END 2022-10-12 09:52 | disposition home or self-care (01) ==
LOC: HO.HMGCLDS 09:51
PROVIDERS: PCP Nurse Practitioner Family; Visit Provider Nurse Practitioner Family
DX: N39.0 Urinary tract infection, site not specified (principal)
CPT/HCPCS: 81001; 87086

== ENCOUNTER 2022-12-14 15:54 | Outpatient (AMB) | payer OTHER, SELFPAY ==
[2022-12-14 16:18] VITALS: BP 126/84; PULSE 86; O2SAT 98; BMI 26.2
--- NOTE | 2022-12-14 16:18 | A.OFFPC_ITS ---
Vital Signs 12/14/22 16:18 Height 5 ft 2 in Weight 143 lb BMI 26.2 BP 126/84 Blood Pressure Location Lt brachial Position Sitting Pulse 86 Pulse Source Pulse Oximeter Pulse Oximetry (%) 98 Oxygen Delivery Method Room Air Intake Visit Reasons: Annual PE Allergies levofloxacin Adverse Reaction (Unknown, Verified 12/14/22 16:20) serious abdominal upset Medication List - Last Reconciled 12/14/22 by FANTASMA Ortiz bupropion HCl 300 mg (2 x 150 mg) PO QAM lorazepam 0.5 mg PO DAILY PRN 30 days naratriptan take 1 tab at onset of headache; if no relief may repeat 1 tab after at least 4 hrs; max = 2 tabs/24 hrs PO simvastatin 20 mg PO DAILY Tobacco use date assessed: 12/14/22 Dental Screening Dental Screen Date: 12/14/22 Did you have a dental visit in the last 12 months?: Yes Did you have a dental problem in the last 6 months where you did not have access to dental care?: No Was dental information given to patient?: Patient has dentist HPI Annual PE HPI Details Pt is here for a PE. Will order labs. Colon screen is up to date. Mammo is up to date. 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 Pt was seen in the ER yesterday for a migraine. She reports that this has since ceased. Pt is seeing a neurology. She is also seeing urology and nephrology (Hx of kidney stones and pyelo). [facility] Medical History (Updated 12/14/22 @ 16:24 by FANTASMA Ortiz) Vitamin D deficiency Hx of renal tubular acidosis Family history of early CAD Insomnia Kidney stones Hyperlipidemia Depression Hx of migraine headaches Surgical History S/P bunionectomy Hx of prior ablation treatment History of section S/P hysterectomy H/O colonoscopy Family History Father CVD (cardiovascular disease) Mother No problems noted. Brother No problems noted. Daughter No problems noted. Daughter No problems noted. Social History Housing: House Patient Tobacco Use Status: Never used Tobacco e-Cigarette/Vaping Use: Never Used Second Hand Smoke Exposure: No Current occupational status: unemployed Cognitive needs: No Hearing needs: No Vision needs: Yes Questionnaire Thrive Questionnaire Date Thrive assessed: 09/17/21 DOMITILA-7 AMB Questionnaire DOMITILA-7 Date DOMITILA - 7 assessed: 09/17/21 Source: Developed by Drs. Homer Armando, Sarai Mart, Vj Gamboa and colleagues, with an educational petey from [employer]. Review of Systems Const Denies chills and Denies fever(s) Eyes Denies blurry vision ENT Denies vertigo, Denies dizziness and Denies sore throat Card Denies chest pain at rest, Denies chest pain with activity, Denies diaphoresis, Denies dyspnea and Denies dyspnea on exertion Resp Denies cough, Denies dyspnea, Denies dyspnea on exertion and Denies wheezing GI Denies abdominal pain, Denies melena, Denies hematochezia, Denies constipation, Denies diarrhea and Denies loose stools Denies hematuria Musc Denies numbness and Denies tingling Skin/Breast Denies lesions Neuro Denies vertigo, Denies dizziness, Denies numbness and Denies tingling Psych Denies anxiety, Denies depression, Denies homicidal ideation, Denies suicidal ideation and Denies other (substance abuse) Aller/Immun Denies wheezing Physical exam (Primary Care) Vital Signs: Last Vital Signs Pulse 86 12/14/22 16:18 BP 126/84 12/14/22 16:18 Pulse Ox 98 12/14/22 16:18 Oxygen Delivery Method Room Air 12/14/22 16:18 BMI result Body Mass Index 26.2 Tobacco/Smoking Status: Tobacco use Status Tobacco use date assessed 12/14/22 12/14/22 16:24 Patient Tobacco Use Status Never used Tobacco 12/14/22 16:24 e-Cigarette/Vaping Use Never Used 12/14/22 16:24 Thrive Assessment: Date of Thrive Assessment Date Thrive assessed 09/17/21 12/14/22 16:24 Const General: cooperative Nutritional Appearance: well nourished Orientation/consciousness: patient oriented x3 HENMT Head: Yes normal to inspection, Yes normocephalic and Yes atraumatic Ears: TM's normal bilaterally Eyes General: appearance normal, both eyes and all related structures Alignment and Position: alignment normal and position normal Neck Neck: Yes normal visual inspection and Yes no lymphadenopathy Thyroid: Thyroid normal Resp Effort & Inspection: normal respiratory effort Auscultation: clear to auscultation bilaterally Cardio Rate: regular rate Rhythm: regular rhythm Heart sounds: S1 normal heart sound present, S2 normal heart sound present and no murmurs GI Palpation (GI): Soft to palpation and nontender Auscultation: normal bowel sounds Skin Rashes: no rashes Neuro General: patient oriented x3, moves all extremities, no focal motor deficits and deep tendon reflexes 2+ bilaterally Romberg Test: Negative Psych Appearance: grossly normal Mental Status: mental status grossly normal Speech and movement: Normal speech and movement present Affect: normal affect Attitude: cooperative Thought process: Normal thought process present Thought content: Normal thought content present Insight: Good insight present (Psych) Judgement: Good judgement present (Psych) Assessment and Plan Assessment & Plan (1) Physical exam: Code(s): Z. - Encounter for general adult medical examination without abnormal findings Plan: Labs ordered (2) Vitamin D deficiency: Code(s): E55.9 - Vitamin D deficiency, unspecified Plan: Vitamin D ordered Plan The patient agreed to the use of a health care / medical job titles for this encounter. Scribed for FANTASMA Robins by Nasrin Davis health care / medical job titles, on 12/14/2022 at 16:25 EST. Orders: Orders Complete Blood Count Auto Diff Today Z00.00 - Encounter for general adult medical examination without abnormal findings TSH reflex Free T4 Today Z00.00 - Encounter for general adult medical examination without abnormal findings Vitamin D 25-OH Total Today E55.9 - Vitamin D deficiency, unspecified Urine Culture Today Z00.00 - Encounter for general adult medical examination without abnormal findings Comprehensive [place]. Panel Fast Today Z00.00 - Encounter for general adult medical examination without abnormal findings UA CC w/rflx Micro + Cult Today Z00.00 - Encounter for general adult medical examination without abnormal findings Lipid Panel Today Z00.00 - Encounter for general adult medical examination without abnormal findings Coding Level of Care Code Est Pt Prev Care 40-64y(29333) Diagnoses Physical exam Z00. Vitamin D deficiency E55.9
== END 2022-12-14 16:42 | disposition home or self-care (01) ==
PROVIDERS: PCP Nurse Practitioner Family; Visit Provider Nurse Practitioner Family
DX: Z00.00 Encounter for general adult medical examination without abnormal findings (principal); E55.9 Vitamin D deficiency, unspecified
CPT/HCPCS: 99396

== ENCOUNTER 2023-06-14 15:05 | Outpatient (AMB) | payer OTHER, SELFPAY ==
--- NOTE | 2023-06-14 15:14 | MHC.PC.OV ---
Vital Signs 06/14/23 15:15 Height 5 ft 2 in Weight 145 lb BMI 26.5 BP 126/80 Blood Pressure Location Lt brachial Position Sitting Pulse 87 Pulse Source Pulse Oximeter Pulse Oximetry (%) 98 Intake Visit Reasons: 6 month follow up Intake Note: pt is here for 6 month follow up Instructor Painting Required: No Accompanied by: Self / Same As Patient Allergies levofloxacin Adverse Reaction (Unknown, Verified 06/14/23 15:15) serious abdominal upset Tobacco use date assessed: 06/14/23 Dental Screening Dental Screen Date: 06/14/23 Did you have a dental visit in the last 12 months?: Yes Did you have a dental problem in the last 6 months where you did not have access to dental care?: No Was dental information given to patient?: Patient has dentist HPI 6 month follow up HPI Details Pt is following up with urology due to kidney stones, and frequent UTIs. She had a recent shockwave lithotripsy. Pt has an upcoming CT in June. Denies fever, chills, and flank pain. [facility] Medical History (Updated 06/14/23 @ 15:42 by ESVIN Ortiz-MAKAYLA) Vitamin D deficiency Hx of renal tubular acidosis Family history of early CAD Insomnia Kidney stones Hyperlipidemia Depression Hx of migraine headaches Surgical History S/P bunionectomy Hx of prior ablation treatment History of section S/P hysterectomy H/O colonoscopy Family History Father CVD (cardiovascular disease) Mother No problems noted. Brother No problems noted. Daughter No problems noted. Daughter No problems noted. Social History Housing: House Patient Tobacco Use Status: Never used Tobacco e-Cigarette/Vaping Use: Never Used Second Hand Smoke Exposure: No Current occupational status: unemployed Cognitive needs: No Hearing needs: No Vision needs: Yes Questionnaire PHQ-9 Over the last 2 weeks, how often have you been bothered by any of the following problems? 1. Little interest or pleasure in doing things: several days 2. Feeling down, depressed, or hopeless: several days 3. Trouble falling or staying asleep, or sleeping too much: several days 4. Feeling tired or having little energy: several days 5. Poor appetite or overeating: several days 6. Feeling bad about yourself - or that you are a failure or have let yourself or your family down: not at all 7. Trouble concentrating on things, such as reading the newspaper or watching television: several days 8. Moving or speaking so slowly that other people could have noticed. Or the opposite - being so fidgety or restless that you have been moving around a lot more than usual: not at all 9. Thoughts that you would be better off or of hurting yourself in some way: not at all Total score: 6 Depression Screening Interpretation: Negative Depression Screening Done: Yes 90932 - PHQ-9 Billing: Yes Source: Developed by Drs. Homer Armando, Sarai Mart, Vj Gamboa and colleagues, with an educational petey from [employer]. Thrive Questionnaire Date Thrive assessed: 09/17/21 AUDIT C Alcohol Use Questionnaire (AUDIT-C) 1. How often do you have a drink containing alcohol?: Monthly or less 2. How many drinks containing alcohol do you have on a typical day when you are drinking?: 1 or 2 3. How often do you have six or more drinks on one occasion?: Never Total Score: 1 Score Reviewed/Action Taken: Yes DOMITILA-7 AMB Questionnaire DOMITILA-7 Date DOMITILA - 7 assessed: 06/14/23 Feeling nervous, anxious, or on edge: 2 = More than half the days Not being able to stop or control worryin = Several days Worrying too much about different things: 1 = Several days Trouble relaxin = More than half the days Being so restless that it is hard to sit still: 2 = More than half the days Becoming easily annoyed or irritable: 2 = More than half the days Feeling afraid as if something awful might happen: 2 = More than half the days Total DOMITILA-7 score (0-4 normal; 5-9 mild; 10-14 moderate; 15-21 severe): 12 Source: Developed by Drs. Homer Armando, Sarai Mart, Vj Gamboa and colleagues, with an educational petey from [employer]. DOMITILA-7 Assessment Billing DOMITILA-7 Assessment Tool: DOMITILA-7 Assessment 29322 Review of Systems Const Reports as per HPI Physical exam (Primary Care) Vital Signs: Last Vital Signs Pulse 87 06/14/23 15:15 BP 126/80 06/14/23 15:15 Pulse Ox 98 06/14/23 15:15 BMI result Body Mass Index 26.5 Tobacco/Smoking Status: Tobacco use Status Tobacco use date assessed 06/14/23 06/14/23 15:16 Patient Tobacco Use Status Never used Tobacco 06/14/23 15:16 e-Cigarette/Vaping Use Never Used 06/14/23 15:16 PHQ-9: PHQ-9 Score PHQ-9: Total score 6 06/14/23 15:42 Depression Screening Interpretation: Negative Thrive Assessment: Date of Thrive Assessment Date Thrive assessed 09/17/21 06/14/23 15:16 Const General: cooperative Orientation/consciousness: patient oriented x3 Resp Effort & Inspection: normal respiratory effort Auscultation: clear to auscultation bilaterally Cardio Rate: regular rate Rhythm: regular rhythm Heart sounds: S1 normal heart sound present and S2 normal heart sound present General: Yes no CVA tenderness Back/Spine/Pelvis Back: no CVA tenderness Neuro General: patient oriented x3 Psych Appearance: grossly normal Mental Status: mental status grossly normal Speech and movement: Normal speech and movement present Affect: normal affect Attitude: cooperative Thought process: Normal thought process present Thought content: Normal thought content present Insight: Good insight present (Psych) Judgement: Good judgement present (Psych) Assessment and Plan Assessment & Plan (1) Chronic UTI: Code(s): N39.0 - Urinary tract infection, site not specified Plan: Following up with urology, can contact me at any point with further questions or concern (2) Kidney stones: Comment: 10/25/2015 - infection - [facility] seeing urology 2022 Code(s): N20.0 - Calculus of kidney Plan: Following up with urology Plan The patient agreed to the use of a medical administrator for this encounter. Scribed for FANTASMA Robins by leda Tilley scribe, on 06/14/2023 at 15:30 EST. Coding Level of Care Code Est Pt Level 3 (47811) Diagnoses Chronic UTI N39.0 Kidney stones N20.0 Additional Codes DOMITILA-7 Assessment Billing - DOMITILA-7 Assessment Tool: DOMITILA-7 Assessment 31902 ([id number])
[2023-06-14 15:15] VITALS: BP 126/80; PULSE 87; O2SAT 98; BMI 26.5
== END 2023-06-14 16:37 | disposition home or self-care (01) ==
PROVIDERS: PCP Nurse Practitioner Family; Visit Provider Nurse Practitioner Family
DX: N39.0 Urinary tract infection, site not specified (principal); N20.0 Calculus of kidney
CPT/HCPCS: 99213

== ENCOUNTER 2024-04-05 12:21 | Outpatient (AMB) | payer BC, SELFPAY ==
--- NOTE | 2024-04-05 12:25 | A.OFFPC_ITS ---
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 Required: No Accompanied by: Self / Same As Patient Allergies levofloxacin Adverse Reaction (Unknown, Verified 04/05/24 12:53) serious abdominal upset Medication List - Last Reconciled 04/05/24 by Tk Murillo [facility] bupropion HCl XL 300 mg (2 x 150 mg) PO QAM estradiol 1 patch transdermal QWEEK lorazepam 0.5 mg PO DAILY PRN 30 days naratriptan take 1 tab at onset of headache; if no relief may repeat 1 tab after at least 4 hrs; max = 2 tabs/24 hrs PO simvastatin 20 mg PO DAILY Tobacco use date assessed: 04/05/24 Dental Screening Dental Screen Date: 04/05/24 Did you have a dental visit in the last 12 months?: Yes Did you have a dental problem in the last 6 months where you did not have access to dental care?: No Was dental information given to patient?: Patient has dentist HPI Annual PE/Per Tk HPI Details History of Present Illness The patient is a 59-year-old female presenting for PE. She reports slight anxiety, though mostly stress related to her family. SHe reports things are starting to resolve however. The patient denies any history or presence of depression and states she does not have any suicidal or homicidal ideations. Denies any fevers, chills, N/V, blood in stool, CP, SOB. The patient is also following up with a road oiler and a neurologist, suggesting a comprehensive approach to her health management. NOTE: Hx of chronic UTI, will also order a culture. 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 denies flu vaccine Health Maintenance - Mammography screening: completed, acco rding to pt, will try to trck down results. Social History Review of Systems - General: Denies any shortness of breat h, denies chest pain. - Neurological: Denies tingling or numbn ess - Psychological: Reports anxiety, denies depression, denies suicidal ideation, denies homicidal ideation. Physical Exam General: Cooperative, healthy appearing, comfortable, no acute distress and well developed Orientation: Patient oriented x3 Limitations: No limitations Head: Normal to inspection Ears: Hearing grossly normal bilaterally Nose: Normal external nose present Face and sinus: Normal facial exam Eyes: Appearance normal, both eyes and all related structures Neck: Normal visual inspection and Yes full ROM Respiratory: Normal respiratory effort and able to speak in complete sentences. Clear to auscultation bilaterally Cardiovascular: Regular rate and rhythm. Normal S1 and S2 GI: Normal to inspection. Soft to palpation and nontender Skin: No rashes or lesions noted Neuro: Patient oriented x3 Extremities: Normal to inspection Results Plan - Monitor anxiety symptoms and evaluate the effectiveness of any ongoing or planned therapeutic interventions. - No new treatments or management change s discussed. Patient was informed and verbally consented to the use of an ambient scribe for clinic note documentation during this visit. Discussion Notes During the visit, I discussed the recent completion of the mammogram. I acknowledged her ongoing anxiety and assured her that monitoring and evaluation will continue. The patient's current management by both the road oiler and neurologist was also briefly acknowledged. Patient Instructions - Continue with the current management p moisés for anxiety. - Follow up with the road oiler and ne urologist as previously arranged. - Seek medical attention if any new symp toms arise or if current symptoms exacerbate. [facility] Medical History Vitamin D deficiency Hx of renal tubular acidosis Family history of early CAD Insomnia Kidney stones Hyperlipidemia Depression Hx of migraine headaches Surgical History S/P bunionectomy Hx of prior ablation treatment History of section S/P hysterectomy H/O colonoscopy Family History Father CVD (cardiovascular disease) Mother No problems noted. Brother No problems noted. Daughter No problems noted. Daughter No problems noted. Social History Housing: House Patient Tobacco Use Status: Never used Tobacco e-Cigarette/Vaping Use: Never Used Second Hand Smoke Exposure: No Current occupational status: unemployed Cognitive needs: No Hearing needs: No Vision needs: Yes Questionnaire PHQ-9 Over the last 2 weeks, how often have you been bothered by any of the following problems? 1. Little interest or pleasure in doing things: not at all 2. Feeling down, depressed, or hopeless: not at all 3. Trouble falling or staying asleep, or sleeping too much: several days 4. Feeling tired or having little energy: not at all 5. Poor appetite or overeating: not at all 6. Feeling bad about yourself - or that you are a failure or have let yourself or your family down: not at all 7. Trouble concentrating on things, such as reading the newspaper or watching television: not at all 8. Moving or speaking so slowly that other people could have noticed. Or the opposite - being so fidgety or restless that you have been moving around a lot more than usual: not at all 9. Thoughts that you would be better off or of hurting yourself in some way: not at all Total score: 1 Depression Screening Interpretation: Negative Depression Screening Done: Yes 98482 - PHQ-9 Billing: Yes Source: Developed by Drs. Homer Armando, Sarai Mart, Vj Gamboa and colleagues, with an educational petey from [employer]. Thrive Questionnaire Date Thrive assessed: 04/05/24 I am a: Patient What is your living situation today?: I have a steady place to live Within the past 12 months, did the food you bought not last and you didn't have the money to get more?: Often true Within the past 12 months, did you worry whether your food would run out before you got money to buy more?: Often true Do you have trouble paying for medicines?: No Do you have trouble getting transportation to medical appointments?: No Do you have trouble paying your heating and electricity bill?: No Do you have trouble taking care of your child, family member or friend?: No Do you have trouble with day-to-day activities such as bathing, preparing meals, shopping, managing finances, etc.?: No Are you currently unemployed and looking for a job?: No Are you interested in more education?: No Please select the resources that you would like help with: None Currently or been in a relationship where the following occur: No concerns reported THRIVE Score: 2 AUDIT C Alcohol Use Questionnaire (AUDIT-C) 1. How often do you have a drink containing alcohol?: Monthly or less 2. How many drinks containing alcohol do you have on a typical day when you are drinking?: 1 or 2 3. How often do you have six or more drinks on one occasion?: Never Total Score: 1 Score Reviewed/Action Taken: Yes DOMITILA-7 AMB Questionnaire DOMITILA-7 Date DOMITILA - 7 assessed: 04/05/24 Feeling nervous, anxious, or on edge: 1 = Several days Not being able to stop or control worryin = Several days Worrying too much about different things: 1 = Several days Trouble relaxin = Several days Being so restless that it is hard to sit still: 0 = Not at all Becoming easily annoyed or irritable: 0 = Not at all Feeling afraid as if something awful might happen: 2 = More than half the days Total DOMITILA-7 score (0-4 normal; 5-9 mild; 10-14 moderate; 15-21 severe): 6 Source: Developed by Drs. Homer Armando, Sarai Mart, Vj Gamboa and colleagues, with an educational petey from [employer]. DOMITILA-7 Assessment Billing DOMITILA-7 Assessment Tool: DOMITILA-7 Assessment 88024 Physical exam (Primary Care) Vital Signs: Last Vital Signs Pulse 82 04/05/24 12:26 BP 122/80 04/05/24 12:26 Pulse Ox 98 04/05/24 12:26 BMI result Body Mass Index 27.4 Tobacco/Smoking Status: Tobacco use Status Tobacco use date assessed 04/05/24 04/05/24 12:28 Patient Tobacco Use Status Never used Tobacco 04/05/24 12:28 e-Cigarette/Vaping Use Never Used 04/05/24 12:28 PHQ-9: PHQ-9 Score PHQ-9: Total score 1 04/05/24 12:28 Depression Screening Interpretation: Negative Thrive Assessment: Date of Thrive Assessment Date Thrive assessed 04/05/24 04/05/24 12:28 Currently or been in a relationship where the following occur: No concerns reported Coding Level of Care Code New Pt Prev Care 40-64y(55851) Diagnoses Physical exam Z00.00 Vitamin D deficiency E55.9 Chronic UTI N39.0 Additional Codes DOMITILA-7 Assessment Billing - DOMITILA-7 Assessment Tool: DOMITILA-7 Assessment 45873 ([id number]) PHQ-9 - 26133 - PHQ-9 Billing: Yes ([id number]) Assessment & Plan Assessment & Plan (1) Physical exam: Code(s): Z00.00 - Encounter for general adult medical examination without abnormal findings Category: Medical (2) Vitamin D deficiency: Code(s): E55.9 - Vitamin D deficiency, unspecified Category: Medical (3) Chronic UTI: Code(s): N39.0 - Urinary tract infection, site not specified Category: Medical Plan . Orders: Orders TSH reflex Free T4 Today Z00.00 - Encounter for general adult medical examination without abnormal findings Lipid Panel Today Z00.00 - Encounter for general adult medical examination without abnormal findings Vitamin D 25-OH Total Today E55.9 - Vitamin D deficiency, unspecified Complete Blood Count Auto Diff Today Z00.00 - Encounter for general adult medical examination without abnormal findings Comprehensive [place]. Panel Fast Today Z00.00 - Encounter for general adult medical examination without abnormal findings UA CC w/rflx Micro + Cult Today Z00.00 - Encounter for general adult medical examination without abnormal findings Urine Culture Today N39.0 - Urinary tract infection, site not specified
[2024-04-05 12:26] VITALS: BP 122/80; PULSE 82; O2SAT 98; BMI 27.4
--- OUTSIDE RECORDS SUMMARY | 2024-04-05 12:27 | XMS_ITS | Continuity of Care Document ---
Author Organization [facility] Address [address] [facility], [address] Floor, [address] [place] [id number] Care Team Providers Care Licensed Funeral Director Name Role Phone Lidia RAMIREZ, Tk Mcclendon Primary Care Physician [phone] Encounter [facility] Date(s): 02/04/24 - 03/05/24 [facility] [address] [facility] [facility] [address]rd Floor, [address] [place] [id number] Encounter Type: Triage Allergies, Adverse Reactions, Alerts Substance Criticality Severity Reaction Reaction Severity Status ciprofloxacin psychotic feeling Active levoFLOXacin Psychotic feeling Active Immunizations Given and Recorded Vaccine Date Status Refusal Reason SARS-CoV-2 (COVID-19) mRNA BNT-162b2 vac 09/10/20 Given SARS-CoV-2 (COVID-19) mRNA BNT-162b2 vac 08/14/20 Given Medications Botox 200 units injection See Instructions, 200u vial, dispense 1 vial every 3 months, 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., # 1 each, 3 Refills, Maintenance, 03/04/23 10:35:00 AM EST, [facility], Partial fill upon patient request if the prescription is for a schedule II opioid drug., 158, cm, 03/02/23 13:41:00 EST, Height, 66.4, kg, 10/12/22 23:13:00 EDT, Dry Weight Start Date: 03/04/23 Status: Ordered Quantity: 1.0 Unit: each Repeat number: 4 buPROPion 300 mg/24 hours oral extended release tablet 1 tablet = 300 mg, By Mouth, Daily, 0 Refills, Maintenance, 05/14/14 8:33:47 AM EST Start Date: 05/14/14 Status: Ordered Repeat number: 1 Lorazepam = 0.5 mg, By Mouth, Daily, PRN as needed for anxiety, 0 Refills, Maintenance, 11/19/17 2:02:35 PM EDT Start Date: 11/19/17 Status: Ordered Repeat number: 1 naproxen 500 mg oral tablet 1 tablet, By Mouth, 2 times a day, PRN NEEDED FOR MIGRAINE *, TAKE WITH NARATRIPTAN., # 20 tablet, 3 Refills, Maintenance, 09/19/23 12:49:00 PM EDT, [id number], 158, cm, 09/16/23 13:46:00 EDT,Height, 66.4, kg, 10/12/22 23:13:00 EDT, Dry Weight Start Date: 09/19/23 Status: Ordered Quantity: 20.0 Unit: tablet Repeat number: 1 naratriptan 2.5 mg oral tablet 1 tablet = 2.5 mg, By Mouth, Daily, PRN migraine, take with naproxen 500mg, # 9 tablet, 11 Refills,Maintenance, 03/02/23 2:04:00 PM EST, [facility]/pharmacy #[id number], 158, cm, 03/02/23 13:41:00 EST, Height, 66.4, kg, 10/12/22 23:13:00 EDT, Dry Weight Start Date: 03/02/23 Status: Ordered Quantity: 9.0 Unit: tablet Repeat number: 12 nitrofurantoin macrocrystals 100 mg oral capsule 0 Refills, Maintenance, 09/16/23 1:52:00 PM EDT, Partial fill upon patient request if the prescription is for a schedule II opioid drug. Start Date: 09/16/23 Status: Ordered Repeat number: 1 simvastatin 10 mg oral tablet 10 mg, 1, tablet, By Mouth, Daily at bedtime, Refills 0, Maintenance, 11/19/17 1:59:51 PM EDT Start Date: 11/19/17 Status: Ordered Repeat number: 1 Social History Social History Type Response Smoking Status Former smoker, quit more than 30 days ago entered on: 10/05/22 Sex Sex Representation Female (finding) Patient Care team information Care Team Personnel Name: Tk Murillo NP Position: Reference Physician Member Role: PCP Address: [address] [place] [address] [place] [address]- Telecom: Care Team Related Persons Name: CHAU POWELL Insurance Providers Guarantor name: JULIANNA POWELL Health Plan Information #: 1 Payer: HMO BLUE IN NETWORK Member Number: NA Policy Number: NA Group Number: [id number]
--- OUTSIDE RECORDS SUMMARY | 2024-04-05 12:27 | XMS_ITS | Patient Health Record ---
Author Organization [facility] Address [address] [place] [address] Care Team Providers Care Adolescent Counselor Name Role Phone Tk Murillo Primary Care Provider Unavailabl e Allergies Allergen (clinical drug ingredient) Drug/Non Drug Allergy documented on EMR Reaction Allergy Type Onset Date Status levofloxacin Levofloxacin serious abdominal upset Drug Allergy Active Reason For Referral No Information Medications Medication SIG (Take, Route, Frequency, Duration) Notes Start Date End Date Status hydrOXYzine HCl 25 MG 1 tablet as needed for nausea/itching/anxiety Orally every 8 hrs for 30 day(s) 09/05/2021 Not-Taking oxyCODONE HCl 5 MG 1 tablet as needed f or severe pain Orally every 6 hrs for 5 days 09/05/2021 Not-Takin g Magnesium Active Probiotic Active Rizatriptan Benzoate prn Active Simvastatin 20 MG 1 tablet in the evening Orally Once a day Active buPROPion HCl ER (SR) 150 MG 2 tablets Orally Once a day Active Estradiol Active Ibuprofen 600 MG 1 tablet with food o r milk as needed Orally every 6 hrs for 30 days 09/05/2021 Active Acetaminophen 500 MG 1 tablet as needed Orally every 4 hrs for 30 days 09/05/2021 Active Problems Problem Type SNOMED Code ICD Code Onset Dates Problem Status W/U Status Risk Notes Problem [id number] Hallux valgus (acquired), right foot (M20.11) Active confirmed Problem [id number] Hallux valgus (acquired), left foot (M20.12) Active confirmed Problem Abdominal actinomycosis (23903686) Abdominal actinomycosis (A42.1) Active confirmed Problem 128924042 Hallux valgus of right foot (M20.11) Active confirmed Problem 758347804 Hallux valgus of left foot (M20.12) Active confirmed Plan Of Treatment Pending Test Test Name Order Date X ray : Foot, left 3v 09/09/2020 X ray : Foot, right 3v 10/20/2021 X ray : Foot, right 3v 12/03/2021 X ray : Foot, right 3v 09/09/2020 WALKING BOOT PNEUMATIC AND/OR VAC 2021 Insurance Providers Payer Name Payer Address Payer Phone Subscriber Number Group Number Insured Name Patient Relationship to Insured Coverage Start Date Coverage End Date [facility] [address] [place] [address] [phone] [id number] Rochelle Hays Self - patient is the insured Medical (General) History Medical History History ICD Code Depression Migraine headaches Hx of renal tubular acidosis Hyperlipidemia Insomnia Kidney stones Vitamin D deficiency Hyperlipidemia Surgical History Surgery Date(Month/Year) H/o colonoscopy History of section Hx of prior ablation treatment S/P hysterectomy Right MIS bunionectomy and tailors bunio nectomy 08/2021 Hospitalization History Reason Date(Month/Year) hysterectomy section
== END 2024-04-05 13:05 | disposition home or self-care (01) ==
PROVIDERS: PCP Nurse Practitioner Family; Visit Provider Nurse Practitioner Family
DX: Z00.00 Encounter for general adult medical examination without abnormal findings (principal); E55.9 Vitamin D deficiency, unspecified; N39.0 Urinary tract infection, site not specified

== ENCOUNTER → 2024-04-05 12:21 | Outpatient (BNVA) | payer BC, SELFPAY | PROVIDERS: PCP Nurse Practitioner Family; Visit Provider Nurse Practitioner Family | DX: Z00.00 Encounter for general adult medical examination without abnormal findings (principal); E55.9 Vitamin D deficiency, unspecified; N39.0 Urinary tract infection, site not specified | CPT/HCPCS: 96127 ==

== ENCOUNTER 2024-10-11 10:51 | Outpatient (AMB) | payer BC, SELFPAY ==
[2024-10-11 11:08] VITALS: BP 118/74; PULSE 84; RESP 16; O2SAT 98; BMI 25.4
--- NOTE | 2024-10-11 11:08 | A.OFFPC_ITS ---
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 History of Present Illness The patient is a 59-year-old female presenting with stress and anxiety. She is undergoing emotional distress due to familial issues, including her daughter's and her daughter's 's infidelity, leading to a pending divorce. She denies any suicidal or homicidal ideation. She reports a strong family support system and uses lorazepam, 0.5 mg, in the afternoon to manage her anxiety, which she finds effective. She is informed about accessing support through the portal for any further concerns. Social History - Family status: Daughter is , a nd patient is undergoing a divorce due to 's infidelity. - Support system: Strong family support is present. Health Maintenance Review of Systems - Psychiatric: Reports stress and anxiet y. Denies suicidal or homicidal ideation. Physical Exam General: Cooperative, healthy appearing, comfortable, no acute distress and well developed Orientation: Patient oriented x3 Limitations: No limitations Head: Normal to inspection Ears: Hearing grossly normal bilaterally Nose: Normal external nose present Face and sinus: Normal facial exam Eyes: Appearance normal, both eyes and all related structures Neck: Normal visual inspection and Yes full ROM Respiratory: Normal respiratory effort and able to speak in complete sentences. Clear to auscultation bilaterally Cardiovascular: Regular rate and rhythm. Normal S1 and S2 Results Plan The patient will maintain her current regimen of lorazepam, 0.5 mg, to manage anxiety, particularly during peak times in the afternoon. She is advised to continue leveraging her family support system and to utilize the portal for any further assistance or questions. Discussion Notes I discussed with the patient the continuation of lorazepam for anxiety management and emphasized the importance of her family support system. I assured her that she could contact me through the portal for any further questions or concerns. Patient Instructions - Continue taking lorazepam, 0.5 mg, as needed for anxiety, especially in the afternoon. - Stay connected with your family suppor t system. - Reach out through the portal if you mahoney ve any questions or need further support. [facility] Medical History Vitamin D deficiency Hx of renal tubular acidosis Family history of early CAD Insomnia Kidney stones Hyperlipidemia Depression Hx of migraine headaches Surgical History S/P bunionectomy Hx of prior ablation treatment History of section S/P hysterectomy H/O colonoscopy Family History Father CVD (cardiovascular disease) Mother No problems noted. Brother No problems noted. Daughter No problems noted. Daughter No problems noted. Social History Housing: House Patient Tobacco Use Status: Never used Tobacco e-Cigarette/Vaping Use: Never Used Second Hand Smoke Exposure: No Current occupational status: unemployed Cognitive needs: No Hearing needs: No Vision needs: Yes Questionnaire PHQ-9 Over the last 2 weeks, how often have you been bothered by any of the following problems? 1. Little interest or pleasure in doing things: not at all 2. Feeling down, depressed, or hopeless: not at all 3. Trouble falling or staying asleep, or sleeping too much: several days 4. Feeling tired or having little energy: not at all 5. Poor appetite or overeating: not at all 6. Feeling bad about yourself - or that you are a failure or have let yourself or your family down: not at all 7. Trouble concentrating on things, such as reading the newspaper or watching television: not at all 8. Moving or speaking so slowly that other people could have noticed. Or the opposite - being so fidgety or restless that you have been moving around a lot more than usual: not at all 9. Thoughts that you would be better off or of hurting yourself in some way: not at all Total score: 1 Depression Screening Interpretation: Negative Depression Screening Done: Yes 88708 - PHQ-9 Billing: Yes Source: Developed by Drs. Homer Armando, Vj Galeana and colleagues, with an educational petey from [employer]. Thrive Questionnaire Date Thrive assessed: 04/02/24 I am a: Patient What is your living situation today?: I have a steady place to live Within the past 12 months, did the food you bought not last and you didn't have the money to get more?: Often true Within the past 12 months, did you worry whether your food would run out before you got money to buy more?: Often true Do you have trouble paying for medicines?: No Do you have trouble getting transportation to medical appointments?: No Do you have trouble paying your heating and electricity bill?: No Do you have trouble taking care of your child, family member or friend?: No Do you have trouble with day-to-day activities such as bathing, preparing meals, shopping, managing finances, etc.?: No Are you currently unemployed and looking for a job?: No Are you interested in more education?: No Please select the resources that you would like help with: None Currently or been in a relationship where the following occur: No concerns reported THRIVE Score: 2 DOMITILA-7 AMB Questionnaire DOMITILA-7 Date DOMITILA - 7 assessed: 10/11/24 Feeling nervous, anxious, or on edge: 1 = Several days Not being able to stop or control worryin = Several days Worrying too much about different things: 1 = Several days Trouble relaxin = Several days Being so restless that it is hard to sit still: 0 = Not at all Becoming easily annoyed or irritable: 0 = Not at all Feeling afraid as if something awful might happen: 2 = More than half the days Total DOMITILA-7 score (0-4 normal; 5-9 mild; 10-14 moderate; 15-21 severe): 6 Source: Developed by Sarai Larson Kurt Kroenke and colleagues, with an educational petey from [employer]. DOMITILA-7 Assessment Billing DOMITILA-7 Assessment Tool: DOMITILA-7 Assessment 12316 Physical exam (Primary Care) Vital Signs: Last Vital Signs Pulse 84 10/11/24 11:08 Resp 16 10/11/24 11:08 BP 118/74 10/11/24 11:08 Pulse Ox 98 10/11/24 11:08 Oxygen Delivery Method Room Air 10/11/24 11:08 BMI result Body Mass Index 25.4 Tobacco/Smoking Status: Tobacco use Status Tobacco use date assessed 10/11/24 10/11/24 11:14 Patient Tobacco Use Status Never used Tobacco 10/11/24 11:14 e-Cigarette/Vaping Use Never Used 10/11/24 11:14 PHQ-9: PHQ-9 Score PHQ-9: Total score 1 10/11/24 11:14 Depression Screening Interpretation: Negative Thrive Assessment: Date of Thrive Assessment Date Thrive assessed 04/02/24 10/11/24 11:14 Currently or been in a relationship where the following occur: No concerns reported Coding Level of Care Code Est Pt Level 3 (19785) Diagnoses Anxiety F41.9 Stress F43.9 Additional Codes DOMITILA-7 Assessment Billing - DOMITILA-7 Assessment Tool: DOMITILA-7 Assessment 00110 ([id number]) PHQ-9 - 63671 - PHQ-9 Billing: Yes ([id number]) Assessment & Plan Assessment & Plan (1) Anxiety: Code(s): F41.9 - Anxiety disorder, unspecified Category: Medical (2) Stress: Code(s): F43.9 - Reaction to severe stress, unspecified Category: Medical Plan .
--- OUTSIDE RECORDS SUMMARY | 2024-10-11 11:39 | XMS_ITS | Patient Health Record ---
Author Organization [facility] Address [address] [place] [address] Care Team Providers Care Tipple Repairer Name Role Phone Saige (RETIRED) Alessandro FOUNTAIN Primary Care Provide r Unavailable Homer Stone Unavailable [phone] Reason For Referral No Information Medications Medication SIG (Take, Route, Frequency, Duration) Notes Start Date End Date Status Simvastatin 10 MG TK 1 T PO QD Oral for 90 Active buPROPion HCl ER (XL) 300 MG TK 1 T PO QD Oral for 90 Act penny Estradiol 0.0375 MG/24HR SEBAS 1 PA EXT TO THE SKIN 2 TIMES A WK Transdermal for 28 Active Naproxen Active Vitamin D Active Social History Tobacco Use: Social History Observation Description Date Details (start date - stop date) Former Smoker NA - NA Tobacco Use/Smoking Question Answer Notes Patient is a former smoker When did you start smoking? TEENAGER When did you stop smoking? AGE 26 How long has it been since you last smoked? > 10 years Alcohol Screen Question Answer Notes Did you have a drink contain ing alcohol in the past year? Yes How often did you have a dri nk containing alcohol in the past year? Monthly or less (1 point) How many drinks did you have on a typical day when you were drinking in the past year? 1 or 2 drinks (0 point) How often did you have 6 or more drinks on one occasion in the past year? Never (0 point) Points 1 Interpretation Negative Section Notes: Nonsmoker; no sig alcohol Problems Problem Type SNOMED Code ICD Code Onset Dates Problem Status W/U Status Risk Notes Problem [id number] Encounter for screening for malignant neoplasm of colon (Z12.11) Active confirmed Problem 588722812 Preprocedural examination (Z01.818) Active confirmed Plan Of Treatment Future Test Test Name Order Date COLONOSCOPY 04/27/2017 Insurance Providers Payer Name Payer Address Payer Phone Subscriber Number Group Number Insured Name Patient Relationship to Insured Coverage Start Date Coverage End Date [facility] [address] [facility] [place] [phone] [id number] JULIANNA POWELL Self - patient is the insured Medical (General) History Medical History History ICD Code Migraines Kidney stones--cystoscopy with stents, E SWL--Dr. Garcia Denies [place],DM,CVA,Lung disease. Depression/Anxiety Hyperlipidemia Surgical History Surgery Date(Month/Year) 2 C-sections Cholecystectomy Hysterectomy
--- OUTSIDE RECORDS SUMMARY | 2024-10-11 11:39 | XMS_ITS | Patient Health Record ---
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
--- OUTSIDE RECORDS SUMMARY | 2024-10-11 11:39 | XMS_ITS | Clinical Summary ---
Author Organization [facility] it Address [address] [place] [address] Care Team Providers Care Passenger Car Upholsterer Apprentice Name Role Phone Unavailable Primary Care Provider Unavailabl e Social History Tobacco Use Types Packs/Day Years Used Date Smoking Tobacco: Never Assessed Comments Unknown Sex and Gender Information Value Date Recorded Sex Assigned at Not on file Legal Sex Female 7:14 PM EST Gender Identity Not on file Sexual Orientation Not on file Plan of Treatment Health Maintenance Due Date Last Done Comments Breast Cancer Screening 1966 DTaP,Tdap,and Td Vaccines (1 - Tdap) 1985 Hepatitis B Vaccines (1 of 3 - 19+ 3-dose series) 1985 Cervical Cancer Screening: P ap Smear 1987 Pneumococcal Vaccine: 50+ Ye ars (1 of 1 - PCV) 02/29/2016 Zoster Vaccines (1 of 2) 02/29/2016 COVID-19 Vaccine ( - 2023-2 5 season) 2023 Influenza Vaccine (#1) 2024 HIB Vaccines Aged Out No longer eligi ble based on patient's age to complete this topic HPV Vaccines Aged Out No longer eligi ble based on patient's age to complete this topic Hepatitis A Vaccines Aged Out No long er eligible based on patient's age to complete this topic IPV Vaccines Aged Out No longer eligi ble based on patient's age to complete this topic MMR Vaccines Aged Out No longer eligi ble based on patient's age to complete this topic Meningococcal ACWY Vaccine Aged Out N o longer eligible based on patient's age to complete this topic Meningococcal B Vaccine Aged Out No l onger eligible based on patient's age to complete this topic Pneumococcal Vaccine: Pediat rics (0 to 5 Years) and At-Risk Patients (6 to 49 Years) Aged Out No longer eligible b ased on patient's age to complete this topic RSV Immunization Patients Un derrick 20 months Aged Out No longer eligible b ased on patient's age to complete this topic Varicella Vaccines Aged Out No longer eligible based on patient's age to complete this topic
--- OUTSIDE RECORDS SUMMARY | 2024-10-11 11:39 | XMS_ITS | Encounter Summary ---
Author Organization [facility] Address [address] [facility] [address] [place] [address] Phone Care Team Providers Care Varsity Baseball Coach Name Role Phone Alessandro Moulton DO Primary Care Provider [phone] Encounter Details Date Type Department Care Team (Late st Contact Info) Description 11/05/2021 Documentation Only [facility] [address] [place] [address] Te Abdi MD [address] [place] [address] Dr. [place] [address] Social History Tobacco Use Types Packs/Day Years Used Date Smoking Tobacco: Never Alcohol Use Standard Drinks/Week Comments Yes 0 (1 standard drink = 0.6 oz pure alcohol) Alcoholic Drinks/day: Occasional social drink Comments Unknown Sex and Gender Information Value Date Recorded Sex Assigned at Not on file Legal Sex Female 4:31 PM EST Gender Identity Not on file Sexual Orientation Not on file documented as of this encounter Plan of Treatment Upcoming Encounters Date Type Department Care Team (Late st Contact Info) Description 07/11/2025 3:45 PM EDT Office Visit [facility] [address] [place] [address] Te Abdi MD [address] [place] [address] Dr. Milad[place] [address] documented as of this encounter Visit Diagnoses Not on filedocumented in this encounter Care Teams Varsity Baseball Coach Relationship Specialty Start Date End Date Alessandro Moulton DO Critical access hospital[facility] [address] [place] [address] PCP - General 01/31/19 documented as of this encounter
== END 2024-10-11 11:58 | disposition home or self-care (01) ==
LOC: HO.HMCC 10:52
PROVIDERS: PCP Nurse Practitioner Family; Visit Provider Nurse Practitioner Family
DX: F41.9 Anxiety disorder, unspecified (principal); F43.9 Reaction to severe stress, unspecified

== ENCOUNTER → 2024-10-11 10:51 | Outpatient (BNVA) | payer BC, SELFPAY | PROVIDERS: PCP Nurse Practitioner Family; Visit Provider Nurse Practitioner Family | DX: F41.9 Anxiety disorder, unspecified (principal); F43.9 Reaction to severe stress, unspecified | CPT/HCPCS: 96127 ==

== ENCOUNTER 2024-12-14 08:27 | Outpatient (REF) | payer BC, SELFPAY ==
--- OUTSIDE RECORDS SUMMARY | 2024-12-14 09:34 | XMS_ITS | Encounter Summary ---
Author Organization [facility] [place], Address PO [facility] [address] [place] [address] Phone Care Team Providers Care Kiln Door Builder Name Role Phone Alessandro Moulton DO Primary Care Provider Encounter Details Date Type Department Care Team (Late st Contact Info) Description 02/24/2022 Documentation Only [facility] [address] [place] [address] Te Abdi MD [address] [place] [address] [place] [address] Social History Tobacco Use Types [...] Visit [facility] [address] [place] [address] Te Abdi MD [address] [place] [address] [place] [address] documented as of this encounter Visit Diagnoses Not on filedocumented in this encounter Care Teams Kiln Door Builder Relationship Specialty Start Date End Date Alessandro Moulton DO [facility] [address] [place] [address] PCP - General 01/31/19 documented as of this encounter
--- OUTSIDE RECORDS SUMMARY | 2024-12-14 09:34 | XMS_ITS | Encounter Summary ---
Author Organization [facility] Address PO [facility] [address] [place] [address] Phone Care Team Providers Care Home Visitor Name Role Phone Alessandro Moulton DO Primary Care Provider [phone] Encounter Details Date Type Department Care Team (Late st Contact Info) Description 11/04/2022 Documentation Only [facility] [address] [place] [address] [place], [place] [address] [place] [address] Social History Tobacco Use Types Packs/Day Years [...] Visit [facility] [address] [place] [address] Te Abdi MD [address] [place] [address] [place] [address] documented as of this encounter Visit Diagnoses Not on filedocumented in this encounter Care Teams Home Visitor Relationship Specialty Start Date End Date Alessandro Moulton DO [address] PCP - General 01/31/19 documented as of this encounter
--- OUTSIDE RECORDS SUMMARY | 2024-12-14 09:34 | XMS_ITS | Encounter Summary ---
Author Organization [facility] Address PO [facility] [address] [place] [address] Phone Care Team Providers Care Cotton Weigher Operator Name Role Phone Alessandro Moulton DO Primary Care Provider Encounter Details Date Type Department Care Team (Late st Contact Info) Description 11/02/2022 Documentation Only [facility] [address] [place] [address] Te Abdi MD [address] [place] [address] [place] [address] Social History Tobacco Use Types [...] Visit [facility] [address] [place] [address] Te Abdi MD [address] [place] [address] [place] [address] documented as of this encounter Visit Diagnoses Not on filedocumented in this encounter Care Teams Cotton Weigher Operator Relationship Specialty Start Date End Date Alessandro Moulton DO [facility] [address] [place] [address] PCP - General 01/31/19 documented as of this encounter
--- OUTSIDE RECORDS SUMMARY | 2024-12-14 09:34 | XMS_ITS | Encounter Summary ---
Author Organization [facility] Address PO [facility] [address] [place] [address] Phone Care Team Providers Care Envelope Stamping Machine Operator Name Role Phone Alessandro Moulton DO Primary Care Provider Encounter Details Date Type Department Care Team (Late st Contact Info) Description 11/11/2022 Documentation Only [facility] [address] [place] [address] Te Abdi MD [address] [place] [address] [place] [address] Social History Tobacco Use Types [...] Visit [facility] [address] [place] [address] Te Abdi MD [address] [place] [address] [place] [address] documented as of this encounter Visit Diagnoses Not on filedocumented in this encounter Care Teams Envelope Stamping Machine Operator Relationship Specialty Start Date End Date Alessandro Moulton DO [facility] [address] [place] [address] PCP - General 01/31/19 documented as of this encounter
--- OUTSIDE RECORDS SUMMARY | 2024-12-14 09:34 | XMS_ITS | Patient Health Record ---
Author Organization [facility] Address [address] [place] [address] Care Team Providers Care Machine Hostler Name Role Phone Saige (RETIRED) Alessandro FOUNTAIN Primary Care Provide r Unavailable Homer Stone Unavailable [phone] Reason For Referral No Information Medications Medication [...] Problem Status W/U Status Risk Notes Problem [id number] Encounter for screening for malignant neoplasm of colon (Z12.11) Active confirmed Problem 695585043 Preprocedural examination (Z01.818) Active confirmed Plan Of Treatment Future Test Test Name Order Date COLONOSCOPY 04/27/2017 Insurance Providers Payer Name Payer Address Payer Phone Subscriber Number Group Number Insured Name Patient Relationship to Insured Coverage Start Date Coverage End Date [facility] [address] [facility] [place] [phone] [id number] JULIANNA POWELL Self - patient is the insured Medical (General) History Medical History History ICD Code Migraines Kidney stones--cystoscopy with stents, E SWL--Dr. Garcia Denies [place],DM,CVA,Lung disease. Depression/Anxiety Hyperlipidemia Surgical History Surgery Date(Month/Year) 2 C-sections Cholecystectomy Hysterectomy
--- OUTSIDE RECORDS SUMMARY | 2024-12-14 09:34 | XMS_ITS | Patient Health Record ---
Author Organization [facility] Address [address] [facility] [address] [place] [address] Care Team Providers Care National Recruiter Name Role Phone Tk Murillo Primary Care [...] as needed for nausea/itching/anxiety Orally every 8 hrs; Duration: 30 day(s) 09/05/2021 Not-Taking oxyCODONE HCl 5 MG 1 tablet as needed f or severe pain Orally every 6 hrs; Duration: 5 days 09/05/2021 Not-Taking Magnesium Active Probiotic Active Rizatriptan Benzoate prn Active Simvastatin 20 MG 1 tablet in the evening Orally Once a day Active buPROPion HCl ER (SR) 150 MG 2 tablets Orally Once a day Active Estradiol Active Ibuprofen 600 MG 1 tablet with food o r milk as needed Orally every 6 hrs; Duration: 30 days 09/05/2021 Active Acetaminophen 500 MG 1 tablet as needed Orally every 4 hrs; Duration: 30 days 09/05/2021 Active Problems Problem Type SNOMED Code ICD Code Onset Dates Problem Status W/U Status Risk Notes Problem Acquired hallux valgus (69714820) Hallux valgus (acquired), right foot (M20.11) Active confirmed Problem Acquired hallux valgus (11100306) Hallux valgus (acquired), left foot (M20.12) Active confirmed Problem Abdominal actinomycosis (94209561) Abdominal actinomycosis (A42.1) Active confirmed Problem Hallux valgus of right foot (3073765863) Hallux valgus of right foot (M20.11) Active confirmed Problem Hallux valgus of left foot (6820663281) Hallux valgus of left foot (M20.12) Active [...] Insured Coverage Start Date Coverage End Date [facility] [address] [place] [address] [id number] Rochelle [place] Self - patient is the [...]
--- OUTSIDE RECORDS SUMMARY | 2024-12-14 09:34 | XMS_ITS | Clinical Summary ---
Author Organization [facility] [place], Address [address] [place] [address] [place] [address] Phone Care Team Providers Care Volunteer Recruiter Name Role Phone Alessandro Moulton DO Primary Care Provider [phone] Allergies Active Allergy Reactions Criticality Noted Date Comments Ciprofloxacin Other (see comments) 11/19/2017 Levofloxacin Other (see comments) 11/19/2017 Medications estradiol (VIVELLE-DOT) 0.0375 MG/24HR Comments: Filled Date: Jul 10 2017 12:00AM Patient Notes: SEBAS 1 PA EXT TO THE SKIN 2 TIMES A WK Duration: 28 7 Active buPROPion XL (WELLBUTRIN XL) 300 MG 24 hr tablet Comments: Filled Date: Jun 22 2017 12:00AM Patient Notes: TK 1 T PO QD Duration: 90 8 Active simvastatin (ZOCOR) 20 MG tablet Take 20 mg by mouth daily 0 Active SUMAtriptan (IMITREX) 100 MG tablet Take 100 mg by mouth 1 (one) time each day if needed 0 Active rizatriptan (MAXALT) 10 MG tablet TAKE 1 TABLET ONCE A DAY NEEDED FOR HEADACHE 1 Active buPROPion XL (WELLBUTRIN XL) 150 MG 24 hr tablet Take 300 mg by mouth 1 (one) time each day in the morning 1 Active LORazepam (ATIVAN) 0.5 MG tablet TAKE 1 TABLET BY MOUTH DAILY NEEDED FOR ANXIETY FOR 30 DAYS 3 Active naratriptan (AMERGE) 2.5 MG tablet PLEASE SEE ATTACHED FOR DETAILED DIRECTIONS 3 Active nitrofurantoin (MACRODANTIN) 100 MG capsule 100 MG ORALLY 2 TIMES A DAY FOR 5 DAYS MUST ADMINISTER WITH A MEAL/FOOD 3 Active nortriptyline (PAMELOR) 10 MG capsule TAKE 1 CAPSULE BY MOUTH DAILY AT BEDTIME FOR 1 WEEK, THEN INCREASE TO 2 CAPS/DAY 3 Active sulfamethoxazol e-trimethoprim 800-160 MG per tablet TAKE 1 TABLET BY MOUTH TWICE A DAY FOR 3 DAYS 3 Active Active Problems Problem Noted Date Diagnosed Date Renal stone 04/19/2020 History of calculus of kidney 04/18/2019 Social History Tobacco Use Types Packs/Day Years Used Date Smoking Tobacco: Never Alcohol Use Standard Drinks/Week Comments Yes 0 (1 standard drink = 0.6 oz pure alcohol) Alcoholic Drinks/day: Occasional social drink Comments Unknown Sex and Gender Information Value Date Recorded Sex Assigned at Not on file Legal Sex Female 4:31 PM EST Gender Identity Not on file Sexual Orientation Not on file Last Filed Vital Signs Vital Sign Reading Time Taken Comments Blood Pressure 126/82 07/05/2024 4:38 PM EDT Pulse - - Temperature - - Respiratory Rate - - Oxygen Saturation - - Inhaled Oxygen Concentration - - Weight 59 kg (130 lb) 08/08/2018 12:00 PM EDT Height 154.9 cm (5' 1 ) 08/08/2018 12:00 PM EDT Body Mass Index 24.56 08/08/2018 12:00 PM EDT Plan of Treatment Upcoming Encounters Date Type Department Care Team (Late st Contact Info) Description 07/11/2025 3:45 PM EDT Office Visit [facility] [address] [place] [address] Te Abdi MD [address] [facility] [place] [id number] Health Maintenance Due Date Last Done Comments Breast Cancer Screening 1966 Hepatitis B Vaccine (1 of 3 - 19+ 3-dose series) 02/28 Pneumococcal Vaccine: 50+ Years (1 of 2 - PCV) 985 Colorectal Cancer Screening: Annual FOBT 2015 Colorectal Cancer Screening: Colonoscopy 2015 Colorectal Cancer Screening: Sigmoidoscopy 2015 Influenza Vaccine (#1) 2024 Insurance [facility] Care Teams Volunteer Recruiter Relationship Specialty Start Date End Date Alessandro Moulton DO [address] [place] [address] PCP - General 01/31/19
--- OUTSIDE RECORDS SUMMARY | 2024-12-14 09:34 | XMS_ITS | Encounter Summary ---
Author Organization [facility] Address PO [facility] [address] [place] [address] Phone Care Team Providers Care Pyridine Operator Name Role Phone Alessandro Moulton DO Primary Care Provider [phone] Encounter Details Date Type Department Care Team (Late st Contact Info) Description 03/25/2023 Documentation Only [facility] [address] [place] [address] Te Abdi MD [address] [place] [address] [place] [address] Social History Tobacco Use Types [...] Visit [facility] [address] [place] [address] Te Abdi MD [address] [place] [address] [place] [address] documented as of this encounter Visit Diagnoses Not on filedocumented in this encounter Care Teams Pyridine Operator Relationship Specialty Start Date End Date Alessandro Moulton DO [facility] [address] [place] [address] PCP - General 01/31/19 documented as of this encounter
--- OUTSIDE RECORDS SUMMARY | 2024-12-14 09:34 | XMS_ITS | Encounter Summary ---
Author Organization [facility] Address PO [facility] [address] [place] [address] Phone Care Team Providers Care Title Officer Name Role Phone Alessandro Moulton DO Primary Care Provider [phone] Encounter Details Date Type Department Care Team (Late st Contact Info) Description 11/05/2021 Documentation Only [facility] [address] [place] [address] Te Abdi MD [address] [place] [address] [place] [address] Social History Tobacco Use Types [...] Visit [facility] [address] [place] [address] Te Abdi MD [address] [place] [address] [place] [address] documented as of this encounter Visit Diagnoses Not on filedocumented in this encounter Care Teams Title Officer Relationship Specialty Start Date End Date Alessandro Moulton DO [facility] [address] [place] [address] PCP - General 01/31/19 documented as of this encounter
--- OUTSIDE RECORDS SUMMARY | 2024-12-14 09:34 | XMS_ITS | Encounter Summary ---
Author Organization [facility] Address PO [facility] [address] [place] [address] Phone Care Team Providers Care Retail Consultant Name Role Phone Alessandro Moulton DO Primary Care Provider [phone] Encounter Details Date Type Department Care Team (Late st Contact Info) Description 11/11/2023 Documentation Only [facility] [address] [place] [address] [place], [place] [address] [place] [address] Social History Tobacco Use Types [...] Visit [facility] [address] [place] [address] Te Abdi MD [address] [place] [address] [place] [address] documented as of this encounter Visit Diagnoses Not on filedocumented in this encounter Care Teams Retail Consultant Relationship Specialty Start Date End Date Alessandro Moulton DO [address] PCP - General 01/31/19 documented as of this encounter
--- OUTSIDE RECORDS SUMMARY | 2024-12-14 09:34 | XMS_ITS | Encounter Summary ---
Author Organization [facility] Address PO [facility] [address] [place] [address] Phone Care Team Providers Care Airline Customer Service Agent Name Role Phone Alessandro Moulton DO Primary Care Provider [phone] Encounter Details Date Type Department Care Team (Late st Contact Info) Description 11/19/2022 Documentation Only [facility] [address] [place] [address] Te Abdi MD [address] [place] [address] [place] [address] Social History Tobacco Use Types [...] Visit [facility] [address] [place] [address] Te Abdi MD [address] [place] [address] [place] [address] documented as of this encounter Visit Diagnoses Not on filedocumented in this encounter Care Teams Airline Customer Service Agent Relationship Specialty Start Date End Date Alessandro Moulton DO [facility]6 [facility] [address] [place] [address] PCP - General 01/31/19 documented as of this encounter
--- OUTSIDE RECORDS SUMMARY | 2024-12-14 09:34 | XMS_ITS | Clinical Summary ---
Author Organization [facility] Address [address] [place] [address] Phone Care Team Providers Care Maintenance Shop Manager Name Role Phone Tk Murillo NP Primary Care Provider + Allergies No known active allergies Medications promethazine (PHENERGAN) [address] 1 suppository (25 mg total) rectally every 6 (six) hours as needed for nausea. 12 suppository 12/14/19 Active Social History Tobacco Use Types Packs/Day Years Used Date Smoking Tobacco: Never Assessed Education Answer Date Recorded Are you interested in more education? Not on salvador e 12/13/2022 Are you concerned about learning? Not on file 12/13/2022 No 12/13/2022 No 12/13/2022 Digital Access Answer Date Recorded No 12/13/2022 No 12/13/2022 Reliable internet access at home? Not on file 12/13/2022 Device with a working camera? Not on file Intimate Partner Violence Answer Date R ecorded Are you denied basic needs s uch as food, clothing, or medical care? No 12/13/2022 In the past 12 months have y ou been in a relationship with a person who hurts, threatens, or tries to control you? No 12/13/2022 Are you denied basic needs s uch as food, clothing, or medical care? No 12/13/2022 In the past 12 months have y ou been in a relationship with a person who hurts, threatens, or tries to control you? No 12/13/2022 Comments Unknown Sex and Gender Information Value Date Recorded Sex Assigned at Female 12/13/2022 3:59 PM EDT Legal Sex Female 3:08 PM EDT Gender Identity Female 12/13/2022 3:59 PM EDT Sexual Orientation Not on file Last Filed Vital Signs Vital Sign Reading Time Taken Comments Blood Pressure 131/80 12/13/2022 7:29 PM EDT Pulse 80 12/13/2022 7:29 PM EDT Temperature 37 C (98.6 F) 12/13/2022 4:00 PM EDT Respiratory Rate 18 12/13/2022 7:29 PM EDT Oxygen Saturation 98% 12/13/2022 4:00 PM EDT Inhaled Oxygen Concentration - - Weight 64 kg (141 lb) 12/13/2022 4:00 PM EDT Height 157.5 cm (5' 2 ) 12/13/2022 4:00 PM EDT Body Mass Index 25.79 12/13/2022 4:00 PM EDT Plan of Treatment Health Maintenance Due Date Last Done Comments Adult Td,Tdap Booster 1966 LIPID PANEL 1966 DEPRESSION SCREENING 1978 SMOKING Hx and SMOKELESS TOB ACCO SCREENING 1979 HEPATITIS C SCREENING 02/29/1984 HIV ONE-TIME SCREENING (18-6 5 YEARS) 02/29/1984 PAP SMEAR 1987 SCREENING FOR DIABETES 2001 MAMMOGRAM 2006 COLOGUARD 2011 COLONOSCOPY 2011 COLORECTAL CANCER SCREENING 2011 FIT TEST 2011 FOBT 2011 SIGMOIDOSCOPY 2011 VIRTUAL COLONOSCOPY 2011 PNEUMOCOCCAL VACCINES (50+ y ears) (1 of 1 - PCV) 02/29/2016 ZOSTER VACCINES (1 of 2) 02/29/2016 INFLUENZA VACCINE (#1) 2024 COVID-19 VACCINE (2023-2 5 season) 2024 HEPATITIS A VACCINES Aged Out No long er eligible based on patient's age to complete this topic HIB VACCINES Aged Out No longer eligi ble based on patient's age to complete this topic MENINGOCOCCAL VACCINES (ACWY) Aged Out No longer eligible based on patient's age to complete this topic MENINGOCOCCAL VACCINES (B) Aged Out N o longer eligible based on patient's age to complete this topic Medical Devices Not on file Insurance S S S S S S Care Teams Maintenance Shop Manager Relationship Specialty Start Date End Date Tk Murillo NP [address] [facility] [place] [address] PCP - General Nurse Practitioner 12/13/22 Additional Source Comments The information contained in this document represents components of the legal health record. It is not the complete legal health record.[facility]
--- OUTSIDE RECORDS SUMMARY | 2024-12-14 09:34 | XMS_ITS | Clinical Summary ---
Author Organization [facility] ity Address [address] [place] [address] Care Team Providers Care Rug Sizer Name Role Phone Unavailable Primary Care Provider [...] 02/29/2016 Zoster Vaccines (1 of 2) 02/29/2016 Depression Screening 03/29/2024 COVID-19 Vaccine ( - 2023-2 5 season) 2024 Influenza Vaccine (#1) 2024 RSV Immunization Adult Patie nts (1 - 1-dose 75+ series) 2041 HIB Vaccines Aged Out No longer eligi [...]
--- OUTSIDE RECORDS SUMMARY | 2024-12-14 09:34 | XMS_ITS | Encounter Summary ---
Author Organization [facility] Address [address] [facility] [address] [place] [address] Phone Care Team Providers Care Digital Project Coordinator Name Role Phone Alessandro Moulton DO Primary Care Provider [phone] Encounter Details Date Type Department Care Team (Late st Contact Info) Description 07/29/2023 Documentation Only [facility] [address] [place] [address] Beth AlfaroHE[place], [place] [address] [place] [address] Social History Tobacco Use Types [...] [facility] [address] [place] [address] Te Abdi MD [address] [place] [address] [place] [address] documented as of this encounter Visit Diagnoses Not on filedocumented in this encounter Care Teams Digital Project Coordinator Relationship Specialty Start Date End Date Alessandro Moulton DO [address] PCP - General 01/31/19 documented as of this encounter
[2024-12-14 10:08] LABS: MANUAL DIFF FLAG NO
[2024-12-14 10:27] LABS: Hematocrit 41.2 % (37.0-47.0); Hemoglobin 13.8 g/dl (12.0-16.0); Imm Gran Abs Auto 0.01 X10*3/uL (0.00-0.03); Imm Gran Pct Auto 0.2 % (0.0-0.4); Lymphocytes Absolute Auto 1.1 X10*3/uL (1.2-4.9); Mean Corpuscular HGB Conc 33.5 g/dl (31.0-35.0); Mean Corpuscular Hemoglobin 30.5 pg (27.0-33.0); Mean Corpuscular Volume 90.9 fL (80.0-98.0); NRBC Abs Auto 0.000 X10*3/uL (0.0-0.012); NRBC Pct Auto 0.0 /100WBC (0.0-0.2); Platelet Count 265 X10*3/uL (160-400); Red Blood Count 4.53 X10*6/uL (4.20-5.50); White Blood Count 5.0 X10*3/uL (4.8-10.8)
[2024-12-14 10:52] LABS: Alanine Aminotransferase 23 U/L (0-31); Albumin Level 4.6 g/dL (3.5-5.0); Alkaline Phosphatase 97 U/L (39-117); Anion Gap 7 (12-20); Aspartate Amino Transferase 26 U/L (5-31); Blood Urea Nitrogen 11 mg/dL (9-16); Calcium 9.3 mg/dL (8.4-10.2); Carbon Dioxide 29 mmol/L (22-29); Chloride 108 mmol/L (96-108); Cholesterol 205 mg/dL (<200); Estimated Glomerular Filt Rate 50; HDL Cholesterol 73 mg/dL (>40); Potassium 3.7 mmol/L (3.3-5.1); Sodium 140 mmol/L (135-145); Total Protein 6.6 g/dL (6.5-8.0); Triglycerides 48 mg/dL (<150)
[2024-12-14 11:36] LABS: Appearance Urine Cloudy; Glucose Urine UA Negative (Negative); PH 7.5 (5.0-9.0); Specific Gravity - Urine 1.010 (1.005-1.025); UMIC TRIGGER UA YES
== END 2024-12-14 08:28 | disposition home or self-care (01) ==
LOC: HO.HMGCLDS 08:27
PROVIDERS: PCP Nurse Practitioner Family; Visit Provider Nurse Practitioner Family
DX: Z13.6 Encounter for screening for cardiovascular disorders (principal); Z00.00 Encounter for general adult medical examination without abnormal findings; E55.9 Vitamin D deficiency, unspecified; N39.0 Urinary tract infection, site not specified
CPT/HCPCS: 36415; 80053; 80061; 81001; 82306; 84443; 85025; 87086

== ENCOUNTER 2024-12-19 09:42 | Outpatient (AMB) | payer BC, SELFPAY ==
--- NOTE | 2024-12-19 10:15 | MHC.OFFVIS ---
Vital Signs 12/19/24 10:16 Height 5 ft 2 in Weight 141 lb BMI 25.8 BP 134/88 Blood Pressure Location Rt brachial Position Sitting Respiration 16 Pulse 86 Pulse Oximetry (%) 99 Intake Visit Reasons: Re-Establish Care- Migraine Glass Inserter Required: No Allergies levofloxacin Adverse Reaction (Unknown, Verified 10/11/24 11:09) serious abdominal upset Medication List - Last Reconciled 12/19/24 by Billie Plunkett, MARI bupropion HCl XL 300 mg (2 x 150 mg) PO QAM estradiol 1 patch transdermal QWEEK lorazepam 0.5 mg PO DAILY PRN 30 days naproxen 500 mg PO BID PRN naratriptan take 1 tab at onset of headache; if no relief may repeat 1 tab after at least 4 hrs; max = 2 tabs/24 hrs PO simvastatin 20 mg PO DAILY HPI Comments Details: Rochelle is a 59-year-old female patient with a past medical history of migraine and kidney stones here today to reestablish care. She was previously being treated for migraine at [facility] and transferred to [facility] to continue under my care. She has a long history of migraine and in the past has tried several therapies for control of her migraines without much success. Eventually she was placed on Botox therapy with significant improvement in her migraines. Typical headache presentation for Rochelle includes unilateral pain typically to the temporal areas but not favoring 1 side. Pain can be described as a pressure sensation and headaches are often accompanied by nausea, sensitivity to light, smells, and sound. She also has difficulty with concentrating and fatigued during her headaches. She experiences some halos of light around objects leading up to her migraines. Known triggers include alcohol, sleep deprivation, skipping meals, dehydration, weather changes, and stress. She is currently experiencing 3-4 migraine-type headaches per week. 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 Her daughter and her daughter's 3 children will soon be living with her. Before these stress triggers began, her headaches were much better controlled with on average 1 headache per week at most. Botox has been particularly beneficial in reducing her migraines by at least 50% overall in terms of frequency and severity. Prior to initiation of Botox therapy, she has been getting approximately 5-7 migraines per week. She takes naratriptan in combination with naproxen for abortive measures which works at nearly 100% efficacy within an hour. The last time she received Botox therapy was at [facility] with me. This was performed on September 15. Social/background: Sleep: Currently sleeping poorly d/t anxiety. Recently received Home life: Lives home with her and recently her daughter and 3 grandchildren have moved in his well Occupation: Currently unemployed but home schooling her granddaughter Hydration: Drinks plenty of water Caffeine: 3 caffeinated beverages per day Tobacco: None Alcohol: 1 drink monthly Past medication trials: Amitriptyline- no improvement Topiramate-development of kidney stones Nortriptyline-no improvement/sedation Propranolol-no improvement Botox- currently receiving Botox therapy with good effect Sumatriptan-no significant improvement Rizatriptan-no significant improvement Naratriptan-works well in combination with naproxen Naproxen-works well in combination with naratriptan [facility] Medical History (Updated 12/19/24 @ 10:56 by Billie Plunkett, [facility]) Migraines Vitamin D deficiency Hx of renal tubular acidosis Family history of early CAD Insomnia Kidney stones Hyperlipidemia Depression Hx of migraine headaches Surgical History S/P bunionectomy Hx of prior ablation treatment History of section S/P hysterectomy H/O colonoscopy Family History Father CVD (cardiovascular disease) Mother No problems noted. Brother No problems noted. Daughter No problems noted. Daughter No problems noted. Social History Housing: House Patient Tobacco Use Status: Never used Tobacco e-Cigarette/Vaping Use: Never Used Second Hand Smoke Exposure: No Current occupational status: unemployed Cognitive needs: No Hearing needs: No Vision needs: Yes Review of Systems Const All systems reviewed & are unremarkable except as noted in HPI and below Physical Exam Vital Signs: Last Vital Signs Pulse 86 12/19/24 10:16 Resp 16 12/19/24 10:16 BP 134/88 12/19/24 10:16 Pulse Ox 99 12/19/24 10:16 BMI result Body Mass Index 25.8 Const General: cooperative, healthy appearing, comfortable and no acute distress Nutritional Appearance: well nourished Orientation/consciousness: patient oriented x3 Limitations: no limitations HEENT Head: Yes normal to inspection and Yes normocephalic Eyes General: appearance normal, both eyes and all related structures Visual Romero: normal visual romero by confrontation Alignment and Position: alignment normal Periorbital: periorbital findings normal Eyelids: Yes eyelids normal Conjunctivae: conjunctivae normal Neuro General: patient oriented x3 Cranial nerves: Yes CN's II-XII intact bilaterally Cognition (Neuro): normal cognition Gait exam (Neuro): Normal gait present Motor exam (neuro): 5/5 motor strength present throughout and no tremor noted Romberg Test: Negative Psych Appearance: grossly normal Mental Status: mental status grossly normal Speech and movement: Normal speech and movement present and Clear speech present Affect: normal affect Attitude: cooperative Thought process: Normal thought process present Thought content: Normal thought content present Insight: Good insight present (Psych) Judgement: Good judgement present (Psych) Assessment & Plan Assessment & Plan (1) Chronic migraine without aura without status migrainosus, not intractable: Code(s): G43.709 - Chronic migraine without aura, not intractable, without status migrainosus Category: Medical Plan: . James Byrd is a 59-year-old female patient with a past medical history of migraine and kidney stones here today to reestablish care. She was previously being treated for migraine at [facility] and transferred to [facility] to continue under my care. Headaches have been stable for some time on Botox therapy with use of naratriptan and naproxen for acute therapy. She has had some recent stress triggers and has seen an uptake in her headaches which she feels is likely related. She is also slightly overdue for her Botox therapy which she feels has also been a factor in a slight worsening of her headaches most recently. I would like to get her back on Botox therapy as soon as possible as she is currently due. I will ask that we submit prior authorization to her insurance. We will also continue naratriptan with naproxen for her abortive measures and I will see her back in the clinic as soon as possible for her Botox treatment. Once we have her back on Botox therapy and her social circumstances at home change, we can consider escalating therapy only if needed. -continue Botox therapy per PREEMPT protocol every 12 weeks -continue naratriptan and naproxen combination for abortive measures -obtain prior authorization for the Botox therapy and book as soon as possible for her treatment Medications: New naratriptan take 1 tab at onset of headache; if no relief may repeat 1 tab after at least 4 hrs; max = 2 tabs/24 hrs PO 14 tabs 5RF naproxen 500 mg PO BID PRN 30 tabs 3RF migraine Coding Level of Care Code New Pt Level 4 (41639) Diagnoses Chronic migraine without aura without status migrainosus, not intractable G43.709
[2024-12-19 10:16] VITALS: BP 134/88; PULSE 86; RESP 16; O2SAT 99; BMI 25.8
--- OUTSIDE RECORDS SUMMARY | 2024-12-19 11:37 | XMS_ITS | Encounter Summary ---
Author Organization [facility] Address [address] [facility] [address] [place] [address] Phone Care Team Providers Care Senior Director Of [employer] Name Role Phone Alessandro Moulton DO Primary Care Provider [phone] Encounter Details Date Type Department Care Team (Late st Contact Info) Description 03/25/2023 Documentation Only [facility] [address] [place] [address] Te Abdi MD [address] [place] [address] [place] [address] Social History Tobacco Use Types [...] Visit [facility] [address] [place] [address] Te Abdi MD [address] [place] [address] [place] [address] documented as of this encounter Visit Diagnoses Not on filedocumented in this encounter Care Teams Senior Director Of [employer] Relationship Specialty Start Date End Date Alessandro Moulton DO [facility] [address] [place] [address] PCP - General 01/31/19 documented as of this encounter
--- OUTSIDE RECORDS SUMMARY | 2024-12-19 11:37 | XMS_ITS | Patient Health Record ---
Author Organization [facility] Address [address] [facility] [address] [place] [address] Care Team Providers Care Sawmill Worker Name Role Phone Tk Murillo Primary Care [...] Status Risk Notes Problem Acquired hallux valgus (14542585) Hallux valgus (acquired), right foot (M20.11) Active confirmed Problem Acquired hallux valgus (02322413) Hallux valgus (acquired), left foot (M20.12) Active confirmed Problem Abdominal actinomycosis (66210295) Abdominal actinomycosis (A42.1) Active confirmed Problem Hallux valgus of right foot (0553207911) Hallux valgus of right foot (M20.11) Active confirmed Problem Hallux valgus of left foot (4513663118) Hallux valgus of left foot (M20.12) Active [...] Insured Coverage Start Date Coverage End Date [facility] [address] [place] [address] [id number] Rochelle Hays Self - patient is the [...]
--- OUTSIDE RECORDS SUMMARY | 2024-12-19 11:37 | XMS_ITS | Encounter Summary ---
Author Organization [facility] [place] Address [address] [facility] [address] [place] [address] Phone Care Team Providers Care Pan Greaser Name Role Phone Alessandro Moulton DO Primary Care Provider [phone] Encounter Details Date Type Department Care Team (Late st Contact Info) Description 02/24/2022 Documentation Only [facility] [address] [place] [address] Te Abdi MD [address] [place] [address] [place] [address] Social History Tobacco Use Types [...] Visit [facility] [address] [place] [address] Te Abdi MD [address] [place] [address] [place] [address] documented as of this encounter Visit Diagnoses Not on filedocumented in this encounter Care Teams Pan Greaser Relationship Specialty Start Date End Date Alessandro Moulton DO [facility] [address] [place] [address] PCP - General 01/31/19 documented as of this encounter
--- OUTSIDE RECORDS SUMMARY | 2024-12-19 11:37 | XMS_ITS | Encounter Summary ---
Author Organization [facility] Address PO [facility] [address] [place] [address] Phone Care Team Providers Care Wireline Supervisor Name Role Phone Alessandro Moulton DO Primary Care Provider [phone] Encounter Details Date Type Department Care Team (Late st Contact Info) Description 11/05/2021 Documentation Only [facility] [address] [place] [address] Te Abdi MD [address] [place] [address] [place] [address] Social History Tobacco Use Types [...] Visit [facility] [address] [place] [address] Te Abdi MD [address] [place] [address] [place] [address] documented as of this encounter Visit Diagnoses Not on filedocumented in this encounter Care Teams Wireline Supervisor Relationship Specialty Start Date End Date Alessandro Moulton DO [facility] [address] [place] [address] PCP - General 01/31/19 documented as of this encounter
--- OUTSIDE RECORDS SUMMARY | 2024-12-19 11:37 | XMS_ITS | Encounter Summary ---
Author Organization [facility] Address [address] [facility] [address] [place] [address] Phone Care Team Providers Care Assistant To The President Name Role Phone Alessandro Moulton DO Primary Care Provider [phone] Encounter Details Date Type Department Care Team (Late st Contact Info) Description 11/02/2022 Documentation Only [facility] [address] [place] [address] Te Abdi MD [address] [place] [address] [place] [address] Social History Tobacco Use Types [...] [facility] [address] [place] [address] Te Abdi MD [address] [place] [address] [place] [address] documented as of this encounter Visit Diagnoses Not on filedocumented in this encounter Care Teams Assistant To The President Relationship Specialty Start Date End Date Alessandro Moulton DO [facility] [address] [place] [address] PCP - General 01/31/19 documented as of this encounter
--- OUTSIDE RECORDS SUMMARY | 2024-12-19 11:37 | XMS_ITS | Encounter Summary ---
Author Organization [facility] Address [address] [facility] [address] [place] [address] Phone Care Team Providers Care Visual Associate Name Role Phone Alessandro Moulton DO Primary Care Provider [phone] Encounter Details Date Type Department Care Team (Late st Contact Info) Description 11/04/2022 Documentation Only [facility] [address] [place] [address] Beth AlfaroG[place], [place] [address] [place] [address] Social History Tobacco Use Types [...] Visit [facility] [address] [place] [address] Te Abdi MD [address] [place] [address] [place] [address] documented as of this encounter Visit Diagnoses Not on filedocumented in this encounter Care Teams Visual Associate Relationship Specialty Start Date End Date Alessandro Moulton DO [address] PCP - General 01/31/19 documented as of this encounter
--- OUTSIDE RECORDS SUMMARY | 2024-12-19 11:37 | XMS_ITS | Patient Health Record ---
Author Organization [facility] Address [address] [place] [address] Care Team Providers Care Manager Baby Name Role Phone Saige (RETIRED) Alessandro FOUNTAIN Primary Care Provide r Unavailable Homer Stone Unavailable [phone] Reason For Referral No Information Medications Medication [...] Problem Status W/U Status Risk Notes Problem [id number] Encounter for screening for malignant neoplasm of colon (Z12.11) Active confirmed Problem [id number] Preprocedural examination (Z01.818) Active confirmed Plan Of Treatment Future Test Test Name Order Date COLONOSCOPY 04/27/2017 Insurance Providers Payer Name Payer Address Payer Phone Subscriber Number Group Number Insured Name Patient Relationship to Insured Coverage Start Date Coverage End Date [facility] [address] [facility] [place] [phone] [id number] JULIANNA POWELL Self - patient is the insured Medical (General) History Medical History History ICD Code Migraines Kidney stones--cystoscopy with stents, E SWL--Dr. Garcia Denies VT,DM,CVA,Lung disease. Depression/Anxiety Hyperlipidemia Surgical History Surgery Date(Month/Year) 2 C-sections Cholecystectomy Hysterectomy
--- OUTSIDE RECORDS SUMMARY | 2024-12-19 11:37 | XMS_ITS | Encounter Summary ---
Author Organization [facility] Address [address] [facility] [address] [place] [address] Phone Care Team Providers Care Senior Ios Developer Name Role Phone Alessandro Moulton DO Primary Care Provider Encounter Details Date Type Department Care Team (Late st Contact Info) Description 11/11/2023 Documentation Only [facility] [address] [place] [address] Beth Alfar[place], [place] [address] [place] [address] Social History Tobacco Use Types [...] Visit [facility] [address] [place] [address] Te Abdi MD [address] [place] [address] [place] [address] documented as of this encounter Visit Diagnoses Not on filedocumented in this encounter Care Teams Senior Ios Developer Relationship Specialty Start Date End Date Alessandro Moulton DO [address] PCP - General 01/31/19 documented as of this encounter
--- OUTSIDE RECORDS SUMMARY | 2024-12-19 11:37 | XMS_ITS | Encounter Summary ---
Author Organization [facility] Address PO [facility] [address] [place] [address] Phone Care Team Providers Care Master Of Ceremonies Name Role Phone Alessandro Moulton DO Primary Care Provider [phone] Encounter Details Date Type Department Care Team (Late st Contact Info) Description 11/11/2022 Documentation Only [facility] [address] [place] [address] Te Abdi MD [address] [place] [address] [place] [address] Social History Tobacco Use [...] Visit [facility] [address] [place] [address] Te Abdi MD [address] [place] [address] [place] [address] documented as of this encounter Visit Diagnoses Not on filedocumented in this encounter Care Teams Master Of Ceremonies Relationship Specialty Start Date End Date Alessandro Moulton DO [facility]6 [facility] [address] [place] [address] PCP - General 01/31/19 documented as of this encounter
--- OUTSIDE RECORDS SUMMARY | 2024-12-19 11:37 | XMS_ITS | Clinical Summary ---
Author Organization [facility] ity Address [address] [place] [address] Care Team Providers Care Field Rep Name Role Phone Unavailable Primary Care Provider [...]
--- OUTSIDE RECORDS SUMMARY | 2024-12-19 11:37 | XMS_ITS | Clinical Summary ---
Author Organization [facility] Address [address] [place] [address] Phone Care Team Providers Care Shingler Name Role Phone Tk Murillo NP Primary [...] S S S S S Care Teams Shingler Relationship Specialty Start Date End Date Tk Murillo NP [address] [place] [address] PCP - General Nurse Practitioner 12/13/22 Additional Source Comments The information contained in this document represents components of the legal health record. It is not the complete legal health record.[facility]
--- OUTSIDE RECORDS SUMMARY | 2024-12-19 11:37 | XMS_ITS | Encounter Summary ---
Author Organization [facility] Address PO [facility] [address] [place] [address] Phone Care Team Providers Care Staff Training And Development Manager Name Role Phone Alessandro Moulton DO Primary Care Provider [phone] Encounter Details Date Type Department Care Team (Late st Contact Info) Description 07/29/2023 Documentation Only [facility] [address] [place] [address] [place], [place] [address] [place] [address] Social History Tobacco Use Types [...] Visit [facility] [address] [place] [address] Te Abdi MD [address] [place] [address] [place] [address] documented as of this encounter Visit Diagnoses Not on filedocumented in this encounter Care Teams Staff Training And Development Manager Relationship Specialty Start Date End Date Alessandro Moulton DO [address] PCP - General 01/31/19 documented as of this encounter
--- OUTSIDE RECORDS SUMMARY | 2024-12-19 11:37 | XMS_ITS | Clinical Summary ---
Author Organization [facility] Address [address] [place] [address] [place] [address] Phone Care Team Providers Care Reference And Instruction Librarian Name Role Phone Alessandro Moulton DO Primary Care Provider [phone] Allergies Active Allergy Reactions Criticality Noted Date [...] Visit [facility] [address] [place] [address] Te Abdi MD [address] [facility] [place] [id number] Health Maintenance Due Date Last Done Comments Breast Cancer Screening 1965 Hepatitis B Vaccine (1 of 3 - 19+ 3-dose series) 02/28 Pneumococcal Vaccine: 50+ Years (1 of 2 - PCV) 985 Colorectal Cancer Screening: Annual FOBT 2015 Colorectal Cancer Screening: Colonoscopy 2015 Colorectal Cancer Screening: Sigmoidoscopy 2015 Influenza Vaccine (#1) 2024 Insurance [facility] Care Teams Reference And Instruction Librarian Relationship Specialty Start Date End Date Alessandro Moulton DO [address] [place] [address] PCP - General 01/31/19
--- OUTSIDE RECORDS SUMMARY | 2024-12-19 11:37 | XMS_ITS | Encounter Summary ---
Author Organization [facility] Address [address] [facility] [address] [place] [address] Phone Care Team Providers Care Pricing Associate Name Role Phone Alessandro Moulton DO Primary Care Provider [phone] Encounter Details Date Type Department Care Team (Late st Contact Info) Description 11/19/2022 Documentation Only [facility] [address] [place] [address] Te Abdi MD [address] [place] [address] [place] [address] Social History Tobacco Use [...] Visit [facility] [address] [place] [address] Te Abdi MD [address] [place] [address] [place] [address] documented as of this encounter Visit Diagnoses Not on filedocumented in this encounter Care Teams Pricing Associate Relationship Specialty Start Date End Date Alessandro Moulton DO [facility] [address] [place] [address] PCP - General 01/31/19 documented as of this encounter
== END 2024-12-19 11:01 | disposition home or self-care (01) ==
LOC: HO.HSM 09:43
PROVIDERS: PCP Nurse Practitioner Family; Visit Provider Nurse Practitioner
DX: G43.709 Chronic migraine without aura, not intractable, without status migrainosus (principal)
CPT/HCPCS: 99204

== ENCOUNTER 2025-01-29 09:22 | Outpatient (AMB) | payer BC, SELFPAY ==
--- NOTE | 2025-01-29 08:52 | MHC.OFFVIS ---
Intake Visit Reasons: Botox 200u Allergies levofloxacin Adverse Reaction (Unknown, Verified 10/11/24 11:09) serious abdominal upset PFSH Medical History (Reviewed 01/29/25 @ 08:56 by Nuvia Davis [facility]) Migraines Vitamin D deficiency Hx of renal tubular acidosis Family history of early CAD Insomnia Kidney stones Hyperlipidemia Depression Hx of migraine headaches Surgical History S/P bunionectomy Hx of prior ablation treatment History of section S/P hysterectomy H/O colonoscopy Family History Father CVD (cardiovascular disease) Mother No problems noted. Brother No problems noted. Daughter No problems noted. Daughter No problems noted. Social History Housing: House Patient Tobacco Use Status: Never used Tobacco e-Cigarette/Vaping Use: Never Used Second Hand Smoke Exposure: No Current occupational status: unemployed Cognitive needs: No Hearing needs: No Vision needs: Yes Coding
--- NOTE | 2025-01-29 09:24 | MHC.OFFVIS ---
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 She has a long history of migraine and in the past has tried several therapies for control of her migraines without much success. Eventually she was placed on Botox therapy with significant improvement in her migraines. Per previous documentation: Typical headache presentation for Rochelle includes unilateral pain typically to the temporal areas but not favoring 1 side. Pain can be described as a pressure sensation and headaches are often accompanied by nausea, sensitivity to light, smells, and sound. She also has difficulty with concentrating and fatigued during her headaches. She experiences some halos of light around objects leading up to her migraines. Known triggers include alcohol, sleep deprivation, skipping meals, dehydration, weather changes, and stress. She is currently experiencing 3-4 migraine-type headaches per week. 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 Her daughter and her daughter's 3 children will soon be living with her. Before these stress triggers began, her headaches were much better controlled with on average 1 headache per week at most. Botox has been particularly beneficial in reducing her migraines by at least 50% overall in terms of frequency and severity. Prior to initiation of Botox therapy, she has been getting approximately 5-7 migraines per week. She takes naratriptan in combination with naproxen for abortive measures which works at nearly 100% efficacy within an hour. The last time she received Botox therapy was at [facility] with me. This was performed on September 15 Social/background: Sleep: Currently sleeping poorly d/t anxiety. Recently received Home life: Lives home with her and recently her daughter and 3 grandchildren have moved in his well Occupation: Currently unemployed but home schooling her granddaughter Hydration: Drinks plenty of water Caffeine: 3 caffeinated beverages per day Tobacco: None Alcohol: 1 drink monthly Past medication trials: Amitriptyline- no improvement Topiramate-development of kidney stones Nortriptyline-no improvement/sedation Propranolol-no improvement Botox- currently receiving Botox therapy with good effect Sumatriptan-no significant improvement Rizatriptan-no significant improvement Naratriptan-works well in combination with naproxen Naproxen-works well in combination with naratriptan PFSH Medical History Migraines Vitamin D deficiency Hx of renal tubular acidosis Family history of early CAD Insomnia Kidney stones Hyperlipidemia Depression Hx of migraine headaches Surgical History S/P bunionectomy Hx of prior ablation treatment History of section S/P hysterectomy H/O colonoscopy Family History Father CVD (cardiovascular disease) Mother No problems noted. Brother No problems noted. Daughter No problems noted. Daughter No problems noted. Social History Housing: House Patient Tobacco Use Status: Never used Tobacco e-Cigarette/Vaping Use: Never Used Second Hand Smoke Exposure: No Current occupational status: unemployed Cognitive needs: No Hearing needs: No Vision needs: Yes Review of Systems Const All systems reviewed & are unremarkable except as noted in HPI and below Physical Exam Vital Signs: Last Vital Signs Pulse 83 01/29/25 09:34 Resp 16 01/29/25 09:34 BP 118/82 01/29/25 09:34 Pulse Ox 99 01/29/25 09:34 Oxygen Delivery Method Room Air 01/29/25 09:34 BMI result Body Mass Index 26.0 Const General: cooperative, healthy appearing, comfortable and no acute distress Nutritional Appearance: well nourished Orientation/consciousness: patient oriented x3 Limitations: no limitations HEENT Head: Yes normal to inspection and Yes normocephalic Eyes General: appearance normal, both eyes and all related structures Visual Romero: normal visual romero by confrontation Alignment and Position: alignment normal Periorbital: periorbital findings normal Eyelids: Yes eyelids normal Conjunctivae: conjunctivae normal Neuro General: patient oriented x3 Cranial nerves: Yes CN's II-XII intact bilaterally Cognition (Neuro): normal cognition Gait exam (Neuro): Normal gait present Motor exam (neuro): 5/5 motor strength present throughout and no tremor noted Romberg Test: Negative Psych Appearance: grossly normal Mental Status: mental status grossly normal Speech and movement: Normal speech and movement present and Clear speech present Affect: normal affect Attitude: cooperative Thought process: Normal thought process present Thought content: Normal thought content present Insight: Good insight present (Psych) Judgement: Good judgement present (Psych) Office Procedures Botulinum toxin Injection Details: Procedure: Botox therapy for Chronic Migraine Laterally: Bilateral Indications: Chronic Migraine Medications: Botox 155units How the med was supplied:Patient supplied Timeout performed before procedure, patient identified with full name and date of . Risks and benefits of procedure reviewed, as well as site verified, sonsent signed, allergies reviewed, and medication reconsilliatino reviewed/completed. Following universal hygiene protocol and PREEMPT protocol, Botox 200unit vial was reconstituted with 4cc normal saline for a final concentration of 5units/0.1cc. The areas of injection were cleansed with alcohol. A 30g 0.5 needle was used to administer the injections as below. Procerus: 5units midline Novelty Dipper: 5units left and 5units right Frontalis: 10units left and 10units right Temporalis: 20units left and 20units right Occipitalis:15units left and 15units right Cervical paraspinal 10units left and 10units right Trapezius 15units left and 15units right No noted paresthesias during injection 155units of Botox used and 45units wasted per PREEMPT protocol Complications: None Patient was observed for 15 minutes after the procedure and discharged home with instructions to apply ice to their head as needed. 70611 - Migraine Procedure code (CPT) selection complete Office Meds onabotulinumtoxinA 200 unit solution for injection Performing Provider: Billie Plunkett CNP Performing Location: [facility] [place] [facility] Administered by: Billie Plunkett CNP on 01/29/25 10:03 Dose Route Admin Location Dispensed Lot Number Expiration Date [facility] Corporate Coordinator 155 unit IM 200 units [id number] 09/25/26 2563-6088-25 [employer]/BOTOX Total Dispensed Waste 200 units 22.5 % Assessment & Plan Assessment & Plan (1) Chronic migraine without aura without status migrainosus, not intractable: Code(s): G43.709 - Chronic migraine without aura, not intractable, without status migrainosus Category: Medical Plan: . James Byrd is a 59-year-old female patient with a past medical history of migraine and kidney stones here today for Botox therapy. Headaches in the past have been stable on Botox therapy with use of naratriptan and naproxen for acute therapy. She has had some recent stress triggers and has seen an uptake in her headaches which she feels is likely related. She was also slightly overdue for her Botox therapy which she feels has also been a factor in a slight worsening of her headaches most recently. We will continue acute therapy with naratriptan with naproxen. I will see her again in 3 months for repeat Botox therapy. -continue Botox therapy per PREEMPT protocol every 12 weeks -continue naratriptan and naproxen combination for abortive measures Orders: Orders AMB Botulinum toxin Injection - Patient Supplied N/C Today G43.709 - Chronic migraine without aura, not intractable, without status migrainosus Coding Level of Care Code Est Pt Level 1 (64279) Diagnoses Chronic migraine without aura without status migrainosus, not intractable G43.709 CPT Codes Botox Injection - Botox 3: 10654 - Migraine ([id number])
[2025-01-29 09:34] VITALS: BP 118/82; PULSE 83; RESP 16; O2SAT 99; BMI 26.0
--- OUTSIDE RECORDS SUMMARY | 2025-01-29 10:32 | XMS_ITS | Clinical Summary ---
Author Organization [facility] Address [address] [place] [address] Care Team Providers Care Buffet Attendant Name Role Phone Unavailable Primary Care Provider [...]
--- OUTSIDE RECORDS SUMMARY | 2025-01-29 10:32 | XMS_ITS | Clinical Summary ---
Author Organization [facility] Address [address] [place] [address] Phone Care Team Providers Care Mending Carrier Name Role Phone Tk Murillo NP Primary [...] 02/29/2016 INFLUENZA VACCINE (#1) 2024 COVID-19 VACCINE ( - 2024-2 6 season) 2024 RSV VACCINE (1 - 1-dose 75+ series) 2041 HEPATITIS A VACCINES Aged Out No long [...] file Insurance S S S S S Care Teams Mending Carrier Relationship Specialty Start Date End Date Tk Murillo NP [address] [place] [id number] PCP - General Nurse Practitioner 12/13/22 Additional Source Comments The information contained in this document represents components of the legal health record. It is not the complete legal health record.[facility]
--- OUTSIDE RECORDS SUMMARY | 2025-01-29 10:32 | XMS_ITS | Patient Health Record ---
Author Organization [facility] Address [address] [facility] [address] [place] [address] Care Team Providers Care Licensed Sales Producer Name Role Phone Tk Murillo Primary Care [...] Status Risk Notes Problem Acquired hallux valgus (46981535) Hallux valgus (acquired), right foot (M20.11) Active confirmed Problem Acquired hallux valgus (08700638) Hallux valgus (acquired), left foot (M20.12) Active confirmed Problem Abdominal actinomycosis (40676587) Abdominal actinomycosis (A42.1) Active confirmed Problem Hallux valgus of right foot (7320676932) Hallux valgus of right foot (M20.11) Active confirmed Problem Hallux valgus of left foot (5802606850) Hallux valgus of left foot (M20.12) Active [...] Insured Coverage Start Date Coverage End Date [facility] [address] [place] [address] [phone] [id number] Rochelle Hays Self - patient is the [...]
--- OUTSIDE RECORDS SUMMARY | 2025-01-29 10:32 | XMS_ITS | Patient Health Record ---
Author Organization [facility] Address [address] [place] [address] Care Team Providers Care Coin Purse Assembler Name Role Phone Saige (RETIRED) Alessandro FOUNTAIN Primary Care Provide r Unavailable Homer Stone Unavailable [phone] Reason For Referral No Information Medications Medication SIG (Take, Route, Frequency, Duration) Notes Start Date End Date Status Simvastatin 10 MG TK 1 T PO QD Oral; Duration: 90 Active buPROPion HCl ER (XL) 300 MG TK 1 T PO QD Oral; Duration: 90 Active Estradiol 0.0375 MG/24HR SEBAS 1 PA EXT TO THE SKIN 2 TIMES A WK Transdermal; Duration: 28 Active Naproxen Active Vitamin D Active [...] Problem Status W/U Status Risk Notes Problem Screening for malignant neoplasm of colon (102781823) Encounter for screening for malignant neoplasm of colon (Z12.11) Active confirmed Problem Preprocedural examination (171898456482202) Preprocedural examination (Z01.818) Active confirmed Plan Of Treatment Future Test Test Name Order Date COLONOSCOPY 04/27/2017 Insurance Providers Payer Name Payer Address Payer Phone Subscriber Number Group Number Insured Name Patient Relationship to Insured Coverage Start Date Coverage End Date [facility] [address] [place] [address] [phone] [id number] JULIANNA HAYS Self - patient is the insured Medical (General) History Medical History History ICD Code Migraines Kidney stones--cystoscopy with stents, E SWL--Dr. Garcia Denies ID,DM,CVA,Lung disease. Depression/Anxiety Hyperlipidemia Surgical History Surgery Date(Month/Year) 2 C-sections Cholecystectomy Hysterectomy
== END 2025-01-29 10:22 | disposition home or self-care (01) ==
LOC: HO.HSM 09:23
PROVIDERS: PCP Nurse Practitioner Family; Visit Provider Nurse Practitioner
DX: G43.709 Chronic migraine without aura, not intractable, without status migrainosus (principal)
CPT/HCPCS: 64615

== ENCOUNTER → 2025-01-29 09:22 | Outpatient (BNVA) | payer BC, SELFPAY | PROVIDERS: PCP Nurse Practitioner Family; Visit Provider Nurse Practitioner | DX: G43.709 Chronic migraine without aura, not intractable, without status migrainosus (principal) | CPT/HCPCS: 64615; J0585 ==